=== PATIENT | male | born 1950 | race Two or more races ===

== ENCOUNTER 2025-02-23 15:09 | Emergency (ER) | payer MEDICARE, MEDICAID, SELFPAY ==
--- NOTE | 2025-02-23 | ECG_ITS ---
Test Reason : dyspnea Blood Pressure : */* mmHG Vent. Rate : 72 BPM Atrial Rate : 72 BPM P-R Int : 130 ms QRS Dur : 90 ms QT Int : 402 ms P-R-T Axes : 49 84 31 degrees QTcB Int : 440 ms Normal sinus rhythm Normal ECG When compared with ECG of 04-Oct-2003 10:30, No significant change was found Referred By: Generic ED Physician Electronically Signed By: REBA HUNTER MD
--- NOTE | ~2025-02-23 | XR_ITS ---
EXAMINATION: XR CHEST CLINICAL INFORMATION: chest pain COMPARISON: None available. TECHNIQUE: 2 views of the chest were obtained. FINDINGS: Bilateral multifocal patchy opacities with a reticular nodular pattern. No gross pleural effusion or pneumothorax. No hyperinflation. Low lung volume. Probable 2 mm calcified nodule right lower hemithorax. Lateral projection is limited due to overlapping of the upper extremities. Sternal wires. Cardiomediastinal silhouette size is normal. Multilevel thoracic spondylosis. XR/XR chest 2V IMPRESSION: Concerning acute on chronic airspace disease. Electronically signed by: Jun Gill MD 02/23/2025 04:00 PM EDT
--- NOTE | 2025-02-23 15:33 | ED.EXTPRO ---
HPI - Extremity Problem General Chief complaint: Dyspnea Stated complaint: both feet cold and swelling Time Seen by Provider: 02/23/25 16:09 Source: patient Mode of arrival: ambulatory Limitations: no limitations History of Present Illness ED Provider: HPI Narrative: Patient's history of COPD oxygen-dependent 2-3 L aortic valve replacement bioprosthetic hypertension diabetes CKD [place] furo[place]ide comes here for increased swelling of the legs for last few days with increased shortness a breath no chest pain no fever no chills does have cough with mucoid phlegm Related Data Previous Rx's ?Medication ?Instructions ?Recorded ezetimibe 10 mg tablet 10 mg PO DAILY #30 tabs 02/23/25 furosemide 20 mg tablet 20 mg PO DAILY #30 tabs 02/23/25 Allergies Allergy/AdvReac Type Severity Reaction Status Date / Time No Known Allergies Allergy Verified 02/23/25 15:36 Review of Systems Review of Systems: Yes all other systems are reviewed and are negative PMFSH Past Medical History Medical History 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 2 diabetes mellitus associated with morbid obesity Hyperlipidemia Osteoarthritis Essential hypertension Oxygen dependent COPD (chronic obstructive pulmonary disease) Surgical History H/O aortic valve replacement Social History Social History Advance Directives: No Advance Directives Information Provided: No Do you have a plan to hurt others: No Plan Physical Exam Vital Signs: Vital Signs: Last Vital Signs Temp 98.1 F 02/23/25 18:40 Pulse 74 02/23/25 18:40 Resp 18 02/23/25 18:40 BP 111/94 H 02/23/25 18:40 Pulse Ox 93 02/23/25 18:40 O2 Del Method Nasal Cannula 02/23/25 18:40 O2 Flow Rate 3 02/23/25 18:40 BMI result Body Mass Index 34.5 Appearance: Alert. Oriented X3. No acute distress. Obese Eyes: PERRLA, No Nystagmus ENT: Pharynx normal. Oral Mucosa moist Neck: Normal inspection. Neck supple. CVS: Normal heart rate and rhythm. Pulses normal. Respiratory: No respiratory distress. Equal air entry bilateral, no wheezing/rales/rhonchi decreased air entry at the bases occasional crackles Abdomen: Soft and nontender. Bowel sounds are present, no mass palpable, no CVA tenderness Skin: Skin warm and dry. Normal skin color. Normal skin turgor. Extremities: 3+ pitting lower extremity edema b/l No calf tenderness Neuro: Oriented X 3. No motor deficit. No sensory deficit. Course Course Course Narrative: 74-year-old Maltese-speaking male accompanied by son with medical history of SP CABG, T2DM, on 3 L of oxygen at home, presents to the emergency department today due to chronic left lower extremity pain and swelling with copious watery exudate with worsening swelling over the past 2 days. Also endorsing intermittent chest pain, takes nitroglycerin when having episodes of chest pain with good relief. States he took a dose of nitroglycerin today which did relieve his chest pain. Recently moved to the [facility] from [place] 1 month ago. PE: LLE with 3+ pitting edema, with hydrostatic bullae currently weeping in triage. DP/popliteal pulses 2+. RLE with 3+ pitting edema no weeping. 88% on 3L, lungs CTA. Plan: EKG, chest x-ray, labs Medical Decision Making Medical Decision Making [facility] Narrative: Patient with COPD aortic valve replaced on Coumadin workup showed stable labs with normal BNP level. Will increase the dose of furosemide to 20 mg b.i.d. and ry artery disease status post aortic valve replacement on supplemental oxygen comes here for bilateral leg edema patient also on amlodipine been taking furosemide 20 mg daily Differential Diagnosis Differential Diagnoses: The differential diagnosis associated with the presentation includes Admission/Observation Consideration of admission/observation: Escalation of care including admission/observation considered Lab Data [facility] Lab Attestation statement: I reviewed the patient's lab results. 02/23/25 16:14 02/23/25 17:09 Labs: Lab Results 02/23/25 02/23/25 Range/Units 16:14 17:09 WBC 9.6 (4.8-10.8) X10*3/uL RBC 5.04 (4.60-5.80) X10*6/uL Hgb 14.4 (14.0-18.0) g/dl Hct 45.1 (42.0-52.0) % MCV 89.5 (80.0-98.0) fL MCH 28.6 (27.0-33.0) pg MCHC 31.9 (31.0-36.0) g/dl RDW 14.8 (11.0-16.0) % Plt Count 169 (160-400) X10*3/uL MPV 9.4 (9.4-12.4) fL Immature Gran % (Auto) 0.6 H (0.0-0.4) % Neut % (Auto) 58.3 (45-73) % Lymph % (Auto) 22.7 (20-40) % [place] % (Auto) 13.0 H (2-11) % Eos % (Auto) 4.6 H (0-4) % Baso % (Auto) 0.8 (0-2) % Lymph # (Auto) 2.2 (1.2-4.9) X10*3/uL [place] # (Auto) 1.3 H (0.1-1.2) X10*3/uL Eos # (Auto) 0.4 (0.0-0.4) X10*3/uL Baso # (Auto) 0.1 (0.0-0.2) X10*3/uL Abs Immat Gran (auto) 0.06 H (0.00-0.03) X10*3/uL Absolute Neuts (auto) 5.6 (2.0-8.3) x10*3/uL Absolute Nucleated RBC 0.000 (0.0-0.012) X10*3/uL Nucleated RBC % (auto) 0.0 (0.0-0.2) /100WBC Sodium 141 (135-145) mmol/L Potassium 4.5 (3.3-5.1) mmol/L Chloride 105 (96-108) mmol/L Carbon Dioxide 27 (22-29) mmol/L Anion Gap 14 (12-20) BUN 30 H (9-16) mg/dL Creatinine 1.48 H (0.5-1.4) mg/dL Estim Creat Clear Calc 44.5 Estimated GFR 46 Random Glucose 161 H (60-115) mg/dL Calcium 9.8 (8.4-10.2) mg/dL Magnesium 1.9 (1.6-2.6) mg/dL Total Bilirubin 0.7 (0.0-1.0) mg/dL AST 25 (5-37) U/L ALT 16 (0-40) U/L Alkaline Phosphatase 65 (39-117) U/L Troponin I High Sens 8.3 (<3.5-35.0) ng/L B-Natriuretic Peptide 39 (<100) pg/mL Total Protein 7.6 (6.5-8.0) g/dL Albumin 4.3 (3.5-5.0) g/dL Independent Interpretation I performed an independent interpretation of an: EKG Interpretation: Normal sinus rhythm heart rate 72 beats per minute normal interval normal axis no acute ST-T no acute ischemia Discharge Plan Discharge Clinical Impression: Leg edema Patient Disposition: Home, Self-Care Instructions: Leg Edema (ED) Additional Instructions: Stop amlodipine as it baby causing swelling of the leg Increase the dose of furosemide 20 mg the morning and 20 mg in the afternoon at 14:00 for next 5 days then start taking once a day Follow up with your PCP Continue your oxygen and nebulizer treatment Prescriptions: New furosemide 20 mg tablet 20 mg PO DAILY Qty: 30 0RF ezetimibe 10 mg tablet 10 mg PO DAILY Qty: 30 0RF Referrals: Lena Bynum MD [Physician] - Jaskaran Szymanski MD [Physician] - Interventions: ED Discharge Assessment Last Done: 02/23/25 18:40 Discharge Date/Time: 02/23/25 18:57 Print Language: Maltese
[2025-02-23 15:34] VITALS: BP 123/51; PULSE 81; RESP 20; TEMP 36.8; O2SAT 88; BMI 34.5
[2025-02-23 16:19] LABS: MANUAL DIFF FLAG NO
[2025-02-23 16:20] LABS: Basophils Absolute Auto 0.1 X10*3/uL (0.0-0.2); Basophils Percent Auto 0.8 % (0-2); Eosinophils Absolute Auto 0.4 X10*3/uL (0.0-0.4); Eosinophils Percent Auto 4.6 % (0-4); Hematocrit 45.1 % (42.0-52.0); Hemoglobin 14.4 g/dl (14.0-18.0); Imm Gran Abs Auto 0.06 X10*3/uL (0.00-0.03); Imm Gran Pct Auto 0.6 % (0.0-0.4); Lymphocytes Absolute Auto 2.2 X10*3/uL (1.2-4.9); Lymphocytes Percent Auto 22.7 % (20-40); Mean Corpuscular HGB Conc 31.9 g/dl (31.0-36.0); Mean Corpuscular Hemoglobin 28.6 pg (27.0-33.0); Mean Corpuscular Volume 89.5 fL (80.0-98.0); Mean Platelet Volume 9.4 fL (9.4-12.4); Monocytes Absolute Auto 1.3 X10*3/uL (0.1-1.2); Neutrophils Absolute Auto 5.6 x10*3/uL (2.0-8.3); Neutrophils Percent Auto 58.3 % (45-73); Platelet Count 169 X10*3/uL (160-400); Red Blood Count 5.04 X10*6/uL (4.60-5.80); Red Cell Distribution Width 14.8 % (11.0-16.0); White Blood Count 9.6 X10*3/uL (4.8-10.8)
[2025-02-23 16:45] LABS: B Type Natriuretic Peptide 39 pg/mL (<100)
[2025-02-23 16:46] LABS: Troponin-I High Sensitivity 8.3 ng/L (<3.5-35.0)
[2025-02-23 17:36] LABS: Alanine Aminotransferase 16 U/L (0-40); Albumin Level 4.3 g/dL (3.5-5.0); Alkaline Phosphatase 65 U/L (39-117); Anion Gap 14 (12-20); Aspartate Amino Transferase 25 U/L (5-37); Bilirubin Total 0.7 mg/dL (0.0-1.0); Blood Urea Nitrogen 30 mg/dL (9-16); Calcium 9.8 mg/dL (8.4-10.2); Carbon Dioxide 27 mmol/L (22-29); Chloride 105 mmol/L (96-108); Creatinine Clr Calc Pharmacy 44.5; Estimated Glomerular Filt Rate 46; Glucose Random 161 mg/dL (60-115); Magnesium 1.9 mg/dL (1.6-2.6); Potassium 4.5 mmol/L (3.3-5.1); Sodium 141 mmol/L (135-145); Total Protein 7.6 g/dL (6.5-8.0)
[2025-02-23 18:29] VITALS: BP 110/74; PULSE 74; RESP 16
[2025-02-23 18:40] VITALS: BP 111/94; PULSE 74; RESP 18; TEMP 36.7; O2SAT 93
== END 2025-02-23 18:57 | disposition home or self-care (01) ==
PROVIDERS: Emergency Provider Internal Medicine
DX: R60.0 Localized edema (principal); R06.02 Shortness of breath; Z79.01 Long term (current) use of anticoagulants; Z79.899 Other long term (current) drug therapy
CPT/HCPCS: 36415; 71046; 80053; 83735; 83880; 84484; 85025; 93005; 99283; 99285

== ENCOUNTER → 2025-02-23 15:44 | Outpatient (BNV) | payer MEDICARE, MEDICAID, SELFPAY | PROVIDERS: Emergency Provider Internal Medicine; Visit Provider Radiology Diagnostic Radiology | DX: R07.9 Chest pain, unspecified (principal) | CPT/HCPCS: 71046 ==

== ENCOUNTER → 2025-02-23 16:22 | Outpatient (BNV) | payer MEDICARE, MEDICAID, SELFPAY | PROVIDERS: Emergency Provider Internal Medicine; Visit Provider Internal Medicine Cardiovascular Disease | DX: R06.00 Dyspnea, unspecified (principal) | CPT/HCPCS: 93010 ==

== ENCOUNTER 2025-03-17 08:26 | Outpatient (REF) | payer MEDICARE, MEDICAID, SELFPAY ==
--- NOTE | ~2025-03-17 | XR_ITS ---
EXAMINATION: XR SHOULDER, RIGHT CLINICAL INFORMATION: OA OF SHOULDER COMPARISON: None available. TECHNIQUE: AP external rotation, Grashey, scapular Y, and axillary views of the right shoulder. FINDINGS: Subchondral cyst, and sclerosis along the articular surfaces of the glenoid and humeral head. Deformity of the humeral head and greater tuberosity. Joint space narrowing, glenohumeral joint. Sclerosis along the articular surface and subchondral cyst formation with joint space narrowing at the acromioclavicular joint. No acute cortical disruption or malalignment. No lytic or blastic lesions. Sternal wires.. XR/XR shoulder RT min 2V IMPRESSION: Moderate to severe osteoarthrosis/osteoarthritis, right shoulder. Electronically signed by: Jun Gill MD 03/17/2025 09:31 AM EDT
[2025-03-17 08:55] LABS: MANUAL DIFF FLAG NO
[2025-03-17 10:01] LABS: Basophils Absolute Auto 0.1 X10*3/uL (0.0-0.2); Basophils Percent Auto 0.5 % (0-2); Eosinophils Absolute Auto 0.3 X10*3/uL (0.0-0.4); Hematocrit 45.9 % (42.0-52.0); Hemoglobin 15.1 g/dl (14.0-18.0); Imm Gran Abs Auto 0.07 X10*3/uL (0.00-0.03); Imm Gran Pct Auto 0.7 % (0.0-0.4); Lymphocytes Percent Auto 19.9 % (20-40); Mean Corpuscular HGB Conc 32.9 g/dl (31.0-36.0); Mean Corpuscular Hemoglobin 29.3 pg (27.0-33.0); Mean Corpuscular Volume 89.1 fL (80.0-98.0); Mean Platelet Volume 9.5 fL (9.4-12.4); Monocytes Absolute Auto 0.9 X10*3/uL (0.1-1.2); Monocytes Percent Auto 9.2 % (2-11); Neutrophils Absolute Auto 6.7 x10*3/uL (2.0-8.3); Neutrophils Percent Auto 66.7 % (45-73); Platelet Count 175 X10*3/uL (160-400); Red Blood Count 5.15 X10*6/uL (4.60-5.80); Red Cell Distribution Width 13.9 % (11.0-16.0); White Blood Count 10.1 X10*3/uL (4.8-10.8)
[2025-03-17 10:09] LABS: Estimated Average Glucose 186 mg/dL; Hemoglobin A1c % 8.1 % (<6.0)
[2025-03-17 10:28] LABS: Creatinine Urine 82.34 mg/dL; Microalbum/Creatinine Ratio Ur 163.9 ug/mg cr (<30)
[2025-03-17 10:48] LABS: Alanine Aminotransferase 16 U/L (0-40); Albumin Level 4.2 g/dL (3.5-5.0); Alkaline Phosphatase 57 U/L (39-117); Anion Gap 14 (12-20); Aspartate Amino Transferase 29 U/L (5-37); Bilirubin Total 1.1 mg/dL (0.0-1.0); Blood Urea Nitrogen 17 mg/dL (9-16); Calcium 9.4 mg/dL (8.4-10.2); Carbon Dioxide 25 mmol/L (22-29); Chloride 106 mmol/L (96-108); Cholesterol 122 mg/dL (<200); Estimated Glomerular Filt Rate > 60; Glucose Random 114 mg/dL (60-115); HDL Cholesterol 38 mg/dL (>40); LDL Cholesterol Calculated 56 mg/dL (<100); Sodium 141 mmol/L (135-145); Total Protein 7.3 g/dL (6.5-8.0); Triglycerides 143 mg/dL (<150)
[2025-03-17 10:51] LABS: Thyroid Stimulating Hormone 0.58 uIU/mL (0.32-4.0)
== END 2025-03-17 08:27 | disposition home or self-care (01) ==
LOC: HO.XRAY 08:26
PROVIDERS: PCP Internal Medicine; Visit Provider Internal Medicine
DX: E11.69 Type 2 diabetes mellitus with other specified complication (principal); E78.00 Pure hypercholesterolemia, unspecified; I12.9 Hypertensive chronic kidney disease with stage 1 through stage 4 chronic kidney disease, or unspecified chronic kidney disease; I34.2 Nonrheumatic mitral (valve) stenosis; I70.8 Atherosclerosis of other arteries; I73.9 Peripheral vascular disease, unspecified; J44.9 Chronic obstructive pulmonary disease, unspecified; M19.011 Primary osteoarthritis, right shoulder; Z95.4 Presence of other heart-valve replacement
CPT/HCPCS: 36415; 73030; 80053; 80061; 82043; 82570; 83036; 84443; 85025

== ENCOUNTER → 2025-03-17 09:10 | Outpatient (BNV) | payer MEDICARE, MEDICAID, SELFPAY | PROVIDERS: PCP Internal Medicine; Visit Provider Radiology Diagnostic Radiology | DX: M19.011 Primary osteoarthritis, right shoulder (principal) | CPT/HCPCS: 73030 ==

== ENCOUNTER 2025-03-28 14:47 | Outpatient (AMB) | payer MEDICARE, MEDICAID, SELFPAY ==
--- NOTE | 2025-03-28 14:48 | A.OFFVIS_ITS ---
Vital Signs 03/28/25 14:49 Height 5 ft 4 in Weight 194 lb BMI 33.3 BP 104/52 L Blood Pressure Location Lt brachial Position Sitting Pulse 62 Pulse Source Pulse Oximeter Pulse Oximetry (%) 95 Oxygen Delivery Method Nasal Cannula Oxygen Flow Rate 3 Intake Visit Reasons: Hypoxia/COPD Allergies No Known Allergies Allergy (Verified 03/28/25 14:54) HPI Comments Details: The patient is here for pulmonary evaluation. The patient is a 74-year-old gentleman with chronic respiratory failure, COPD, heart failure who apparently recently moved to the [facility]. The patient was in his usual state health until back in January when he started developing worsening shortness of breath in addition to lower extremity edema. He was taken to the [facility] ED where he was found to be volume overloaded and was placed on diuretics. He diuresed well and currently feeling better. He is still oxygen dependent. He did come from [place] on a portable oxygen concentrator and he is using a 3 L pulse. Therefore during the office visit we did take him off the oxygen and he actually saturating 93% on room air while sitting. But quickly when he went up and walked he dropped to 88% and was placed on 2 L pulse and then had to be increased to 3 L pulse to maintain a pulse ox of 94% with activity. Therefore will go ahead and request a POC for him to be use outside of the home for better portability a also needs a concentrator for the home for oxygen. The patient will also on the knee pulmonary function studies. He did have an x-ray already done at the ER which I personally reviewed demonstrating some reticular nodular opacities which could have been related to underlying interstitial lung disease and/or congestive heart failure. The patient also has a history of COPD and therefore will go ahead and start him on nebulizer machine in order for him to receive his nebulizer treatments twice a day. The patient is also having issues with daytime drowsiness. He has significant snoring at nighttime. He is also oxygen dependent at nighttime so therefore will request a in-lab sleep study to assess the likelihood of sleep apnea. If he does have sleep apnea he may be treated with CPAP or other PAP modalities. [facility] Medical History (Updated 03/28/25 @ 21:42 by Lucien Thapa MD) CHF (congestive heart failure) GER (obstructive sleep apnea) Chronic hypoxemic respiratory failure 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 2 diabetes mellitus associated with morbid obesity Hyperlipidemia Osteoarthritis Essential hypertension Oxygen dependent COPD (chronic obstructive pulmonary disease) Surgical History H/O aortic valve replacement Review of Systems Const Denies fever(s) Eyes Reports no additional complaints ENT Reports nasal congestion Card Denies chest pain, Reports leg edema and Reports dyspnea on exertion Resp Reports cough and Reports dyspnea on exertion GI Reports no additional complaints Reports no additional complaints Musc Reports abnormal gait Skin/Breast Denies rash Neuro Reports abnormal gait Antony/Lymph Reports no additional complaints Aller/Immun Reports no additional complaints Physical Exam Vital Signs: Last Vital Signs Pulse 62 03/28/25 14:49 BP 104/52 L 03/28/25 14:49 Pulse Ox 95 03/28/25 14:49 Oxygen Delivery Method Nasal Cannula 03/28/25 14:49 Oxygen Flow Rate 3 03/28/25 14:49 BMI result Body Mass Index 33.3 Const General: comfortable HEENT Head: Yes normocephalic Neck Neck: Yes supple Chest Chest palpation & inspection: normal inspection of the chest Resp Effort & Inspection: normal respiratory effort Auscultation: diminished lung sounds Cardio Heart sounds: S1 normal heart sound present and S2 normal heart sound present GI Palpation (GI): Soft to palpation Skin General skin exam: no rashes or lesions noted Extrem General: No clubbing and No cyanosis Office Procedures 6 Minute Walk Time:: 21:46 SPO2 % at rest: 93 Pulse at rest: 78 SPO2 % during excercise: 88 Pulse during excercise: 89 Distance in yards walked: 75 Daniela Score: 6 Supplemental Oxygen: quickly desaturated to 88% with activity on RA, placed on 2L/pulse, then 3L/pulse to keep pulse ox 94% with activity. [address]2288 - 6 Minute Walk Assessment & Plan Assessment & Plan (1) CHF (congestive heart failure): Code(s): I50.9 - Heart failure, unspecified Category: Medical Qualifiers: Heart failure type: unspecified Heart failure chronicity: chronic Qualified Code(s): I50.9 - Heart failure, unspecified (2) Chronic hypoxemic respiratory failure: Code(s): J96.11 - Chronic respiratory failure with hypoxia Category: Medical (3) GER (obstructive sleep apnea): Code(s): G47.33 - Obstructive sleep apnea (adult) (pediatric) Category: Medical (4) COPD (chronic obstructive pulmonary disease): Code(s): J44.9 - Chronic obstructive pulmonary disease, unspecified Category: Medical Qualifiers: COPD type: chronic bronchitis Chronic bronchitis type: simple Qualified Code(s): J41.0 - Simple chronic bronchitis Plan Needs anebulizer Duoneb BID Needs oxygen supplementation: 3L/pulse with activity with POC for better portability and 2l/min while sleeping in lab PSG PFTs Diuresis as tolerated PFTs F/U 2-3 months Orders: Orders PFT pulmonary function test Today G47.33 - Obstructive sleep apnea (adult) (pediatric), I50.9 - Heart failure, unspecified, J96.11 - Chronic respiratory failure with hypoxia RT PSG in-lab sleep titration Today G47.33 - Obstructive sleep apnea (adult) (pediatric), I50.9 - Heart failure, unspecified, J96.11 - Chronic respiratory failure with hypoxia Medications: New ipratropium-albuterol 0.5 mg-3 mg(2.5 mg base)/3 mL 3 mL inhalation BID 180 mL 11RF 30 days J44.9 - Chronic obstructive pulmonary disease, unspecified Coding Level of Care Code New Pt Level 4 (53922) Diagnoses Chronic congestive heart failure, unspecified heart failure type I50.9 Heart failure type: unspecified Heart failure chronicity: chronic Chronic hypoxemic respiratory failure J96.11 GER (obstructive sleep apnea) G47.33 Simple chronic bronchitis J41.0 COPD type: chronic bronchitis Chronic bronchitis type: simple CPT Codes Coding ([id number]) Time Spent (min) 40
[2025-03-28 14:49] VITALS: BP 104/52; PULSE 62; O2SAT 95; BMI 33.3
[2025-03-28 21:44] VITALS: PULSE 78; O2SAT 93
== END 2025-03-28 15:24 | disposition home or self-care (01) ==
LOC: HO.HPS 14:48
PROVIDERS: PCP Internal Medicine; Referring Provider Internal Medicine; Visit Provider Hospitalist
DX: I50.9 Heart failure, unspecified (principal); J96.11 Chronic respiratory failure with hypoxia; G47.33 Obstructive sleep apnea (adult) (pediatric); J41.0 Simple chronic bronchitis
CPT/HCPCS: 94618; 99204

== ENCOUNTER → 2025-03-28 14:47 | Outpatient (BNVA) | payer MEDICARE, MEDICAID, SELFPAY | PROVIDERS: PCP Internal Medicine; Referring Provider Internal Medicine; Visit Provider Hospitalist | DX: J96.11 Chronic respiratory failure with hypoxia (principal); I50.9 Heart failure, unspecified; G47.33 Obstructive sleep apnea (adult) (pediatric); J41.0 Simple chronic bronchitis; Z99.81 Dependence on supplemental oxygen | CPT/HCPCS: 94618; 99202 ==

== ENCOUNTER 2025-04-18 11:29 | Outpatient (AMB) | payer MEDICARE, MEDICAID, SELFPAY ==
--- NOTE | 2025-04-18 11:30 | A.OFFVIS_ITS ---
Intake Visit Reasons: [employer] VV Intake Note: New patient presents for VV. Patient has bilateral discoloration on both legs. Left leg pain is worse. He gets cramping and numbness. Accompanied by: Son Allergies No Known Allergies Allergy (Verified 04/18/25 11:34) HPI HPI [employer] VV: Details: Very pleasant 74-year-old gentleman presents for evaluation of his lower ext remities. He originally had some medical care performed in [place]. He does report some peripheral vascular disease and stenting of his left lower extremity November of 2023. In addition there is question of an aortofemoral bypass. He has significantly swollen lower extremities. He has discolored areas on the pretibial surface which she reports had previous serous drainage. Of note he is a diabetic does have COPD and is oxygen dependent. It is the shortness of breath that limits his ambulation distance. He is being maintained on statin and Plavix. He now presents to us for vascular evaluation. [facility] Medical History CHF (congestive heart failure) GER (obstructive sleep apnea) Chronic hypoxemic respiratory failure 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 2 diabetes mellitus associated with morbid obesity Hyperlipidemia Osteoarthritis Essential hypertension Oxygen dependent COPD (chronic obstructive pulmonary disease) Surgical History H/O aortic valve replacement Review of Systems Const All systems reviewed & are unremarkable except as noted in HPI and below Reports no additional complaints ENT Reports Normal hearing present Card Denies chest pain, Denies chest pain at rest, Denies chest pain with activity and Denies pedal edema Resp Denies cough GI Denies abdominal pain Musc Details: pain over varicosities, aching of lower extremities, swelling, cramping, heaviness and tiredness, itching Denies abnormal gait, Denies muscle cramps and Denies radiating pain into limb Skin/Breast Denies skin ulcer and Denies wounds Neuro Reports Normal hearing present and Denies abnormal gait Psych Reports no additional complaints Physical Exam Const General: cooperative, healthy appearing and comfortable Orientation/consciousness: oriented to person, oriented to place and oriented to time HEENT Head: Yes normal to inspection Neck Neck: Yes normal visual inspection Carotids: no bruits Chest Chest palpation & inspection: normal inspection of the chest Resp Effort & Inspection: normal respiratory effort and able to speak in complete sentences Auscultation: clear to auscultation bilaterally, no crackles, no rales, no rhonchi and no wheezes Cardio Other: Bilateral DP signals only Rate: regular rate Rhythm: regular rhythm Heart sounds: S1 normal heart sound present and S2 normal heart sound present Bruits: no carotid bruits GI Inspection: Yes normal to inspection Skin Other: +2 edema, large rope-like varicosities greater than 4 mm CEAP Classification C4 - skin color changes Ep - Etiology Primary As - superficial veins P - reflux General skin exam: dry skin Wounds: no wounds Hair: normal Neuro General: oriented to person, oriented to place and oriented to time Cranial nerves: Yes CN's II-XII intact bilaterally and Yes Normal hearing present Cognition (Neuro): normal cognition Motor exam (neuro): 5/5 motor strength present throughout Extrem Other: venous exam: +2 edema with pretibial skin discoloration General: No clubbing, No cyanosis and Yes edema Right lower extremity: full ROM, normal capillary refill and edema Left lower extremity: full ROM, normal capillary refill and edema Psych Appearance: grossly normal Mental Status: mental status grossly normal Speech and movement: Normal speech and movement present Assessment & Plan Assessment & Plan (1) PAD (peripheral artery disease): Comment: 12/19 - left leg stenting in [place] Question of aortofemoral bypass Code(s): I73.9 - Peripheral vascular disease, unspecified Category: Medical Plan: In short patient may have an element of KARL Nur Very poor historian and unable to get a clear history of what previously was done in regards to his arterial disease. I have taken the liberty of ordering noninvasive arterial testing and he will follow up with us after testing. Thank you for allowing us to participate in his care. If there are any questions or concerns please do not hesitate to contact us. (2) Varicose veins of right lower extremity with inflammation: Code(s): I83.11 - Varicose veins of right lower extremity with inflammation Category: Medical Plan: Significant swelling bilateral lower extremities. We will get venous reflux testing as well. We will try to manage his arterial disease 1st and then delve into his venous disease. Thank you for allowing us to assist in his care. Orders: Orders US venous duplex LE BI 1 Week I83.11 - Varicose veins of right lower extremity with inflammation US arterial duplex LE BI 1 Week I73.9 - Peripheral vascular disease, unspecified Coding Level of Care Code New Pt Level 4 (58989) Complex EM visit Add On G2211 Diagnoses PAD (peripheral artery disease) I73.9 Varicose veins of right lower extremity with inflammation I83.11
== END 2025-04-18 11:47 | disposition home or self-care (01) ==
LOC: HO.HVS 11:29
PROVIDERS: PCP Internal Medicine; Visit Provider Surgery Vascular Surgery
DX: I73.9 Peripheral vascular disease, unspecified (principal); I83.11 Varicose veins of right lower extremity with inflammation
CPT/HCPCS: 99204; G2211

== ENCOUNTER → 2025-04-18 11:29 | Outpatient (BNVA) | payer MEDICARE, MEDICAID, SELFPAY | PROVIDERS: PCP Internal Medicine; Visit Provider Surgery Vascular Surgery | DX: I83.11 Varicose veins of right lower extremity with inflammation (principal); I73.9 Peripheral vascular disease, unspecified | CPT/HCPCS: 99202 ==

== ENCOUNTER 2025-05-16 09:11 | Outpatient (REF) | payer MEDICARE, MEDICAID, SELFPAY ==
[2025-05-16 10:25] LABS: Hemoglobin A1C 268.9325 umol/L; Total Hemoglobin (HGBA1C) 3899.8301 umol/L
[2025-05-16 10:48] LABS: Alanine Aminotransferase 17 U/L (0-40); Albumin Level 4.3 g/dL (3.5-5.0); Alkaline Phosphatase 61 U/L (39-117); Anion Gap 13 (12-20); Aspartate Amino Transferase 27 U/L (5-37); Blood Urea Nitrogen 19 mg/dL (9-16); Calcium 9.5 mg/dL (8.4-10.2); Carbon Dioxide 29 mmol/L (22-29); Chloride 102 mmol/L (96-108); Estimated Glomerular Filt Rate > 60; Potassium 4.7 mmol/L (3.3-5.1); Sodium 139 mmol/L (135-145); Total Protein 7.4 g/dL (6.5-8.0)
== END 2025-05-16 09:12 | disposition home or self-care (01) ==
LOC: HO.LAB 09:11
PROVIDERS: PCP Internal Medicine; Visit Provider Internal Medicine
DX: E11.69 Type 2 diabetes mellitus with other specified complication (principal); E78.00 Pure hypercholesterolemia, unspecified; M19.011 Primary osteoarthritis, right shoulder; N40.0 Benign prostatic hyperplasia without lower urinary tract symptoms; R09.02 Hypoxemia; R80.8 Other proteinuria; Z12.5 Encounter for screening for malignant neoplasm of prostate
CPT/HCPCS: 36415; 80053; 83036; 84153

== ENCOUNTER 2025-05-22 10:16 | Outpatient (REF) | payer MEDICARE, MEDICAID, SELFPAY ==
--- NOTE | ~2025-05-22 | US_ITS ---
EXAMINATION: US LOWER EXTREMITY VENOUS (REFLUX EXAM), BILATERAL CLINICAL INFORMATION: Varices. COMPARISON: None. TECHNIQUE: Color flow triplex imaging and compression Doppler was performed to evaluate both the deep and the superficial systems bilaterally. To evaluate the superficial system, the examination was performed in the upright position. Color-flow Doppler ultrasound and compression ultrasound were utilized. In addition, maneuvers were utilized to demonstrate reflux. FINDINGS: 1. DEEP VENOUS ULTRASOUND OF THE RIGHT LOWER EXTREMITY: Common Femoral Vein: Compressible, normal respiratory variation and augmented flow. Femoral Vein: Compressible, normal color flow and augmentation. Popliteal Vein: Compressible, normal augmentation. Deep Reflux: There is no evidence of reflux in the deep system in either the common femoral vein, superficial femoral or the popliteal vein. There is no evidence of a Dean's cyst. 2. SUPERFICIAL ULTRASOUND WITH DOPPLER OF RIGHT LOWER EXTREMITY: GREAT SAPHENOUS VEIN: Saphenofemoral Junction: 0.5 cm; Reflux: 0 ms Proximal Thigh: 0.4 cm; Reflux: 0 ms Mid Thigh: 0.3 cm; Reflux: 0 ms Distal Thigh: 0.3 cm; Reflux: 0 ms At Knee: 0.3 cm; Reflux: 0 ms Proximal Calf: 0.2 cm; Reflux: 0 ms Mid Calf: 0.3 cm; Reflux: 0 ms Distal Calf: 0.3 cm; Reflux: 0 ms DUPLICATED MEDIAL GREAT SAPHENOUS VEIN: Diameter: None imaged Reflux: NA DUPLICATED LATERAL GREAT SAPHENOUS VEIN: Diameter: None imaged Reflux: NA SMALL SAPHENOUS VEIN: Saphenopopliteal Junction: [0.2 cm; Reflux: 0 ms Proximal: 0.2 cm; Reflux: 0 ms Distal: 0.3 cm; Reflux: 0 ms VEIN OF GIACOMINI: Size: 0.3 cm. Reflux: NA PERFORATORS: Location: Small saphenous vein mid segment. Proximal and mid calf. Size: 0.2 cm. Reflux: NA VARICOSITIES: Location: None imaged. Size: NA Reflux: NA 3. DEEP VENOUS ULTRASOUND OF THE LEFT LOWER EXTREMITY: Common Femoral Vein: Compressible, normal respiratory variation and augmented flow. Femoral Vein: Compressible, normal color flow and augmentation. Popliteal Vein: Compressible, normal augmentation. Deep Reflux: There is no evidence of reflux in the deep system in either the common femoral vein, superficial femoral or the popliteal vein. There is no evidence of a Dean's cyst. 4. SUPERFICIAL ULTRASOUND WITH DOPPLER OF LEFT LOWER EXTREMITY: GREAT SAPHENOUS VEIN: Saphenofemoral Junction: 0.7 cm; Reflux: 0 ms Proximal Thigh: 0.4 cm; Reflux: 0 ms Mid Thigh: 0.3 cm; Reflux: 0 ms Distal Thigh: 0.3 cm; Reflux: 0 ms At Knee: 0.3 cm; Reflux: 0 ms Proximal Calf: 0.2 cm; Reflux: 0 ms Mid Calf: 0.2 cm; Reflux: 0 ms Distal Calf: 0.2 cm; Reflux: 0 ms DUPLICATED MEDIAL GREAT SAPHENOUS VEIN: Diameter: None imaged Reflux: NA DUPLICATED LATERAL GREAT SAPHENOUS VEIN: Diameter: 0.2 cm. Reflux: NA SMALL SAPHENOUS VEIN: Saphenopopliteal Junction: 0.2 cm; Reflux: 0 ms Proximal: 0.3 cm; Reflux: 0 ms Distal: 0.1 cm; Reflux: 0 ms VEIN OF GIACOMINI: Size: NA Reflux: NA PERFORATORS: Location: Small saphenous vein mid segment. Mid calf and heel. Size: 0.1-0.2 cm. Reflux: 848 ms at the heel. VARICOSITIES: Location: None Imaged Size: NA Reflux: NA US/US venous duplex LE BI IMPRESSION: Right: No venous insufficiency. Perforators without reflux.. Left: Perforators at the heel with reflux. Electronically signed by: Jun Gill MD 05/22/2025 11:30 AM EDT
== END 2025-05-22 10:17 | disposition home or self-care (01) ==
LOC: HO.US 10:16
PROVIDERS: PCP Internal Medicine; Visit Provider Surgery Vascular Surgery
DX: I83.11 Varicose veins of right lower extremity with inflammation (principal)
CPT/HCPCS: 93970

== ENCOUNTER → 2025-05-22 10:24 | Outpatient (BNV) | payer MEDICARE, MEDICAID, SELFPAY | PROVIDERS: PCP Internal Medicine; Visit Provider Radiology Diagnostic Radiology | DX: I83.893 Varicose veins of bilateral lower extremities with other complications (principal) | CPT/HCPCS: 93970 ==

== ENCOUNTER 2025-05-31 07:52 | Outpatient (AMB) | payer MEDICARE, MEDICAID, SELFPAY ==
--- NOTE | 2025-05-31 08:01 | A.OFFVIS_ITS ---
Vital Signs 05/31/25 08:09 Height 5 ft 4 in Weight 190 lb BMI 32.6 Intake Visit Reasons: DIRECTOR DIGITAL STRATEGY-Rt shoulder OA Intake Note: Cholo is a 74 year old male who presents with complaints of progressively worsening right shoulder pain and weakness. The patient states that he injured his shoulder 6-7 years ago while lifting a heavy object. He has had cortisone injections in the past. He states that the last injection gave him no relief. He has failed the last 6 weeks of conservative treatment which has included Tylenol, anti-inflammatory medicines, a home exercise program and physical therapy exercises. He reports weakness when lifting his right hand above shoulder height. Rail Project Engineer Required: Yes Rail Project Engineer Services: Rail Project Engineer Present Rail Project Engineer Name: Dino Mcgraw [id number] Allergies No Known Allergies Allergy (Verified 05/31/25 08:10) Medication List - Last Reconciled 05/31/25 by Rafa Dawson MD atorvastatin 20 mg PO DAILY clopidogrel 75 mg PO DAILY ezetimibe 10 mg PO DAILY furosemide 20 mg PO DAILY insulin lispro (Humalog U-100 Insulin) subcut insulin syringe-needle U-100 As directed ipratropium-albuterol 0.5 mg-3 mg(2.5 mg base)/3 mL 3 mL inhalation BID 30 days linagliptin-metformin 2.5-500 mg (Jentadueto) tabs PO metoprolol tartrate 50 mg PO BID nitroglycerin mg sublingual spironolactone 25 mg PO DAILY [facility] Medical History CHF (congestive heart failure) GER (obstructive sleep apnea) Chronic hypoxemic respiratory failure 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 2 diabetes mellitus associated with morbid obesity Hyperlipidemia Osteoarthritis Essential hypertension Oxygen dependent COPD (chronic obstructive pulmonary disease) Surgical History H/O aortic valve replacement Physical Exam Const Other: Well-nourished well-developed very friendly male awake alert and oriented x3 in no acute distress Extrem Other: Right shoulder examination shows decreased range of motion when compared to his left shoulder, 4/5 strength with supraspinatus testing, positive impingement signs, no instability Results Reviewed Results Reviewed: X-rays of the patient's right shoulder show severe glenohumeral joint narrowing, subchondral sclerosis, osteophyte formation, no acute bony abnormalities Assessment & Plan Assessment & Plan (1) Rotator cuff insufficiency of right shoulder: Code(s): M25.311 - Other instability, right shoulder Category: Medical Plan Mr. Chon Guardado presents with right shoulder pain and weakness due to glenohumeral joint arthritis as well as possible full-thickness rotator cuff tearing. Thus, I will send the patient for an MRI of his right shoulder for further evaluation. I will see him back once the MRI is completed to discuss the findings and treatment options. Feel free to call me at any time should questions regarding his orthopedic management arise. I spent 20 minutes in reviewing the patient's records and imaging studies, seeing the patient and documenting in the medical record. Orders: Orders MR shoulder RT wo con 06/01/25 M25.311 - Other instability, right shoulder Coding Level of Care Code New Pt Level 3 (09297) Complex EM visit Add On G2211 Diagnoses Rotator cuff insufficiency of right shoulder M25.311
[2025-05-31 08:09] VITALS: BMI 32.6
== END 2025-05-31 08:17 | disposition home or self-care (01) ==
LOC: HO.HOS 07:54
PROVIDERS: PCP Internal Medicine; Visit Provider Orthopaedic Surgery
DX: M25.311 Other instability, right shoulder (principal)
CPT/HCPCS: 99203; G2211

== ENCOUNTER → 2025-05-31 20:30 | Outpatient (REF) | payer MEDICARE, MEDICAID, SELFPAY | LOC: HO.SL 20:30 | PROVIDERS: PCP Internal Medicine; Visit Provider Hospitalist | DX: G47.33 Obstructive sleep apnea (adult) (pediatric) (principal); J96.11 Chronic respiratory failure with hypoxia | CPT/HCPCS: 95810 ==

== ENCOUNTER → 2025-05-31 20:46 | Outpatient (BNV) | payer MEDICARE, MEDICAID, SELFPAY | PROVIDERS: PCP Internal Medicine; Visit Provider Internal Medicine | DX: G47.33 Obstructive sleep apnea (adult) (pediatric) (principal); R06.83 Snoring | CPT/HCPCS: 95810 ==

== ENCOUNTER 2025-06-06 07:55 | Outpatient (REF) | payer MEDICARE, MEDICAID, SELFPAY | END 2025-06-06 07:56 | disposition home or self-care (01) | LOC: HO.MRI 07:55 | PROVIDERS: PCP Internal Medicine; Visit Provider Orthopaedic Surgery | DX: Z13.89 Encounter for screening for other disorder (principal) ==

== ENCOUNTER 2025-06-12 10:46 | Outpatient (REF) | payer MEDICARE, MEDICAID, SELFPAY ==
--- NOTE | ~2025-06-12 | US_ITS ---
EXAMINATION: US RETROPERITONEAL LIMITED (AORTA) CLINICAL INFORMATION: Aorta screening.. COMPARISON: None available. TECHNIQUE: Dietrich-scale, color Doppler and spectral Doppler evaluation of the abdominal aorta. FINDINGS: The abdominal aorta is patent with peak systolic velocities 36 cm/s, 82 cm/s and 84 cm/s in the proximal, mid and distal segments respectively. The measurements of the aorta in maximum AP and transverse dimensions respectively are as follows: Proximal: 2.4 cm. Mid: 1.6 cm. Distal: 1.7 cm. Iliac arteries are patent with a peak systolic velocities as follows: Right: Common iliac artery: 77 cm/s. External iliac artery: 163 cm/s. Left: Common iliac artery: 150 cm/s. External iliac artery: 166 cm/s. US/US abdominal aortic aneurysm IMPRESSION: No aneurysm.. Electronically signed by: Jun Gill MD 06/12/2025 02:35 PM EDT
--- NOTE | ~2025-06-12 | US_ITS ---
EXAMINATION: Noninvasive assessment of the bilateral lower extremities with ARTERIAL DUPLEX, ANKLE BRACHIAL INDICES (ABIs), and PULSE VOLUME RECORDINGS (PVRs). CLINICAL INFORMATION: Peripheral vascular disease, unspecified. TECHNIQUE: Duplex Doppler techniques with waveform analysis and measurement of velocities in the bilateral common femoral, profunda femoris, superficial femoral, popliteal and tibial arteries were performed. Additionally, ankle pulse volume recordings, ankle pressure measurements and ankle brachial indices were obtained of the lower extremity arterial system bilaterally. The study was performed only at rest. COMPARISON: None FINDINGS: DIRECT DUPLEX DOPPLER FINDINGS: RIGHT LEG: Common femoral artery: 160 cm/s, phasicity: Biphasic. Profunda femoris artery: 90 cm/s, phasicity: Biphasic. . Superficial femoral artery (proximal): 186 cm/s, phasicity: Biphasic. Superficial femoral artery (mid): 215 cm/s, phasicity: Biphasic. Superficial femoral artery (distal): 142 cm/s, phasicity: Biphasic. Popliteal artery: 64 cm/s, phasicity: Biphasic. Posterior tibial artery: 56 cm/s, phasicity: Biphasic. Peroneal artery: No flow on color Doppler interrogation. Anterior tibial artery: 75 cm/s, phasicity: Biphasic. Dorsalis pedis artery: 46 cm/s, phasicity:Biphasic. LEFT LEG: Common femoral artery: 175 cm/s, phasicity: Biphasic. Profunda femoris artery: 93 cm/s, phasicity: Biphasic. Superficial femoral artery (proximal): 140 cm/s, phasicity: Biphasic. Superficial femoral artery (mid): 168 cm/s, phasicity: Biphasic. There is a stent. Superficial femoral artery (distal): 125 cm/s, phasicity: Biphasic. Popliteal artery: 122 cm/s, phasicity: Biphasic. Posterior tibial artery: 67 cm/s, phasicity: Monophasic. Peroneal artery: 65 cm/s, phasicity: Monophasic. Anterior tibial artery: Not documented . Dorsalis pedis artery: Not documented. There is a stent in the femoral artery mid segment with peak systolic velocities as follow: [place] artery proximal to stent: 86 cm/s. Biphasic. Proximal stent: 91 cm/s and biphasic waveform. Mid stent: 114 cm/s and biphasic waveform. Distal stent: 152 cm/s and biphasic waveform. Distal stent to the [place] artery: 168 cm/s and biphasic waveform. BRACHIAL PRESSURES: Right: 155 Left: 152 ANKLE PRESSURES: Right: PT 190, DP 203 Left: PT 201, DP 204 ANKLE-BRACHIAL INDEX: Right: 1.31 Left: 1.32 ANKLE PVR WAVEFORMS: Right: Abnormal Left: Abnormal US/US arterial duplex LE BI IMPRESSION: Right leg: Moderate inflow disease throughout the interrogated arteries. Slow flow versus occluded right peroneal artery. Left leg: Severe inflow disease in the posterior tibialis artery. Mild inflow disease throughout the interrogated arteries. Normal patent stent with biphasic waveforms. FILIPE Reference: - >1.4 = calcified vessels - 0.9 - 1.4 = normal - no significant arterial disease - 0.7 - 0.89 = mild peripheral arterial disease - 0.51 - 0.69 = moderate peripheral arterial disease - 0.50 = severe peripheral arterial disease - < .30 = critical arterial disease Electronically signed by: Jun Gill MD 06/12/2025 02:00 PM EDT
== END 2025-06-12 10:47 | disposition home or self-care (01) ==
LOC: HO.US 10:46
PROVIDERS: PCP Internal Medicine; Visit Provider Surgery Vascular Surgery
DX: I73.9 Peripheral vascular disease, unspecified (principal)
CPT/HCPCS: 76706; 93925

== ENCOUNTER → 2025-06-12 10:49 | Outpatient (BNV) | payer MEDICARE, MEDICAID, SELFPAY | PROVIDERS: PCP Internal Medicine; Visit Provider Radiology Diagnostic Radiology | DX: I73.9 Peripheral vascular disease, unspecified (principal); Z95.1 Presence of aortocoronary bypass graft | CPT/HCPCS: 76706; 93925 ==

== ENCOUNTER 2025-06-21 10:58 | Outpatient (REF) | payer MEDICARE, MEDICAID, SELFPAY ==
--- NOTE | ~2025-06-21 | XR_ITS ---
CLINICAL HISTORY: M79.641 - Pain in right hand Three views of the right hand. COMPARISON: None provided. FINDINGS: Radiopaque foreign body measuring 1 mm present within the subcutaneous soft tissues along the base of the 1st metacarpal. Atherosclerotic vascular calcifications. Distal radius and ulna appear intact. Carpals and metacarpals appear intact. Degenerative changes of the metacarpophalangeal joints most pronounced of the 1st and 2nd digits. Phalanges appear intact. Interphalangeal joint degenerative changes. IMPRESSION: 1. Radiopaque foreign body measuring 1 mm within the subcutaneous tissues along the base of the 1st metacarpal. This document has been electronically signed by: Weston Song MD on 06/21/2025 14:50:15
== END 2025-06-21 10:59 | disposition home or self-care (01) ==
LOC: HO.HOSX 10:58
PROVIDERS: PCP Internal Medicine; Visit Provider Orthopaedic Surgery
DX: S60.551A Superficial foreign body of right hand, initial encounter (principal); I50.9 Heart failure, unspecified; I73.9 Peripheral vascular disease, unspecified; E11.9 Type 2 diabetes mellitus without complications; J41.0 Simple chronic bronchitis; W45.8XXA Other foreign body or object entering through skin, initial encounter; Y93.89 Activity, other specified
CPT/HCPCS: 73130; 99202

== ENCOUNTER 2025-06-21 10:58 | Outpatient (AMB) | payer MEDICARE, MEDICAID, SELFPAY ==
[2025-06-21 11:09] VITALS: BMI 32.6
--- NOTE | 2025-06-21 11:09 | MHC.OFFVIS ---
Vital Signs 06/21/25 11:09 Height 5 ft 4 in Weight 190 lb BMI 32.6 Intake Visit Reasons: New Prob: Rt hand foreign object, discuss sx Intake Note: Cholo 74 yr old right hand dominant male, presents today with his son Lucien, for a new problem visit for his right hand. States he has a piece of metal in his hand. 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 Stated this cause him no pain or discomfort. States he has numbness and tingling in hands and its due to his diabetes and neuropathy. States he would like to have this metal piece removed so he is able to have his shoulder MRI done. Accompanied by: son Lucien Allergies No Known Allergies Allergy (Verified 06/21/25 11:27) HPI HPI New Prob: Rt hand foreign object, discuss sx: Details: Cholo is a 74 year old right hand dominant Diabetic Salvadorean speaking man who presents for a right hand foreign body. Reading workload messages, he was referred today by Dr. Dawson as the patient is unable to undergo a shoulder MRI due to a metallic ferromagnetic foreign body in his right hand. 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 He denies any pain and says he is only here to have this removed so he can undergo his shoulder MRI. Evidently when the diesel maintenance technician placed a magnet over the area, the metal piece lifted up, tenting the skin. He is currently rescheduled for a shoulder CT scan on 08/16/25. He reports numbness & tingling in his hands but says this is from his Diabetes & neuropathy. 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 Review of Systems Const All systems reviewed & are unremarkable except as noted in HPI and below Physical Exam Vital Signs: BMI result Body Mass Index 32.6 Const General: cooperative, healthy appearing and no acute distress Orientation/consciousness: patient oriented x3 HEENT Head: Yes normocephalic and Yes atraumatic Eyes EOM: EOMs intact bilaterally Resp Effort & Inspection: normal respiratory effort and able to speak in complete sentences Cardio Jugular venous distension: no JVD Skin General skin exam: turgor normal Rashes: no rashes Neuro General: patient oriented x3 Extrem Other: Evaluation of Right Upper Extremity: The patient is alert, oriented, and in no acute distress Neuro: Median, Ulnar, Radial nerves motor and sensory intact and sensation is normal to the tips of all digits Vascular: Cap refill brisk ROM: He can make a fist and extend all his digits Skin: No lacerations or abrasions. General: No Ecchymosis. No Erythema or evidence of infection. Small ~3mm area of black hyperpigmented skin directly overlying the metal fragment, superficial to his basal joint, at the intersection between the glaborous and non-glaborous skin. Patient reports that the skin tented when tested with a magnet prior to an MRI. No tenderness Radiographs: 3 views of the right hand were taken and viewed by me today in clinic. They show a very small metallic fragment that appears to be just beneath the skin , roughly dorsal radial and overlying the basal joint Psych Appearance: grossly normal Affect: normal affect Attitude: cooperative Assessment & Plan Assessment & Plan (1) Metal foreign body in right hand: Code(s): S60.551A - Superficial foreign body of right hand, initial encounter Category: Medical (2) CHF (congestive heart failure): Code(s): I50.9 - Heart failure, unspecified Category: Medical Qualifiers: Heart failure chronicity: chronic Heart failure type: unspecified Qualified Code(s): I50.9 - Heart failure, unspecified (3) PAD (peripheral artery disease): Comment: 12/19 - left leg stenting in [place] Question of aortofemoral bypass Code(s): I73.9 - Peripheral vascular disease, unspecified Category: Medical (4) COPD (chronic obstructive pulmonary disease): Code(s): J44.9 - Chronic obstructive pulmonary disease, unspecified Category: Medical Qualifiers: COPD type: chronic bronchitis Chronic bronchitis type: simple Qualified Code(s): J41.0 - Simple chronic bronchitis (5) Diabetes mellitus: Code(s): E11.9 - Type 2 diabetes mellitus without complications Category: Medical Plan Assessment & Plan: 1. Right hand metallic foreign body I educated her about this condition I discussed operative and non-operative treatment options The patient would like to proceed with surgery The risks and benefits of operative treatment were discussed with the patient and the patient wishes to proceed with surgery. These risks include, but are not limited to risk of damage to blood vessels, nerves, tendons, infection, recurrence, incomplete relief of preoperative symptoms, persistent pain, possible need for further surgery and the risks associated with regional blocks and anesthesia. The plan is to take the patient to the operating room sometime in the next few weeks for the following procedures: 1. Right hand removal of foreign body, under local All of the preoperative paperwork including the consent was reviewed today. All the patient's questions were answered. The patient understands that they will be contacted by our surgery technician soon to schedule this procedure He denies blood thinners, asthma, kidney issues He is a Diabetic, his most recent HgA1c was 8.5% on 05/16/25. As this is a small procedure done under local, we can proceed with surgery despite his elevated HgA1c. He has a Hx of COPD, CHF, and PAD. He is not on blood thinners Scribed for Charlee Millan MD by Rai Rodrigues, medical center director, on 06/21/25 at 11:25 AM, EST. Orders: Orders XR hand RT min 3V Today M79.641 - Pain in right hand Coding Level of Care Code New Pt Level 4 (11664) Diagnoses Metal foreign body in right hand S60.551A Chronic congestive heart failure, unspecified heart failure type I50.9 Heart failure chronicity: chronic Heart failure type: unspecified PAD (peripheral artery disease) I73.9 Simple chronic bronchitis J41.0 COPD type: chronic bronchitis Chronic bronchitis type: simple Diabetes mellitus E11.9
== END 2025-06-21 11:46 | disposition home or self-care (01) ==
LOC: HO.HOS 10:58
PROVIDERS: PCP Internal Medicine; Visit Provider Orthopaedic Surgery
DX: S60.551A Superficial foreign body of right hand, initial encounter (principal); I50.9 Heart failure, unspecified; I73.9 Peripheral vascular disease, unspecified; J41.0 Simple chronic bronchitis; E11.9 Type 2 diabetes mellitus without complications
CPT/HCPCS: 99204

== ENCOUNTER → 2025-06-21 11:16 | Outpatient (BNV) | payer MEDICARE, MEDICAID, SELFPAY | PROVIDERS: PCP Internal Medicine; Visit Provider Radiology Diagnostic Radiology | DX: S60.551A Superficial foreign body of right hand, initial encounter (principal) | CPT/HCPCS: 73130 ==

== ENCOUNTER 2025-06-22 07:51 | Outpatient (REF) | payer MEDICARE, MEDICAID, SELFPAY ==
--- NOTE | 2025-06-22 07:54 | PFT_ITS ---
Flows: FEV1: 72 % of predicted at 1.81 L FVC: 69 % of predicted at 2.26 L FEV1/FVC: 80 % Bronchodilator response: Present Volumes: Total lung capacity: 59 % of predicted at 3.41 L Residual volume: 64 % of predicted at 1.40 L Slow vital capacity: 57 % of predicted at 2.01 L Expiratory reserve volume: 44 % of predicted at 0.39 L Diffusion capacity: Moderately decreased, adjusts to being mildly decreased after correction for alveolar ventilation. Impression: Moderate restrictive ventilatory defect with positive bronchodilator response. Decreased expiratory reserve volume suggests extrathoracic restriction likely secondary to abdominal obesity. Combination of restrictive ventilatory defect with decreased diffusion capacity suggests pulmonary parenchymal disease. Clinical correlation is advised. MTDD
[2025-06-22 08:48] VITALS: PULSE 75; O2SAT 97
== END 2025-06-22 07:52 | disposition home or self-care (01) ==
LOC: HO.RESP 07:51
PROVIDERS: PCP Internal Medicine; Visit Provider Hospitalist
DX: J96.11 Chronic respiratory failure with hypoxia (principal); G47.33 Obstructive sleep apnea (adult) (pediatric); I50.9 Heart failure, unspecified
CPT/HCPCS: 94010; 94640; 94727; 94729

== ENCOUNTER → 2025-06-22 07:54 | Outpatient (BNV) | payer MEDICARE, MEDICAID, SELFPAY | PROVIDERS: PCP Internal Medicine; Visit Provider Internal Medicine Pulmonary Disease | DX: J96.11 Chronic respiratory failure with hypoxia (principal) | CPT/HCPCS: 94060; 94727; 94729 ==

== ENCOUNTER 2025-06-29 10:08 | Outpatient (AMB) | payer MEDICARE, MEDICAID, SELFPAY ==
--- NOTE | 2025-06-29 10:11 | A.OFFVIS_ITS ---
Intake Visit Reasons: follow up US 04/2025 & Arterial US 05/2025 Intake Note: Patient presents for follow up arterial and ultrasounds. Patient has discoloration and swelling in both legs. Accompanied by: Family/Other Allergies No Known Allergies Allergy (Verified 06/29/25 10:16) [facility] follow up US 04/2025 & Arterial US 05/2025: Details: The patient is a 74-year-old male presenting for follow-up regarding arterial and venous disease. The patient reports bilateral leg swelling, which has been persistent. An ultrasound of the veins was performed and returned normal results, indicating no venous reflux. The patient has a history of arterial disease, for which a stent was placed in [place]. He now presents for follow-up with noninvasive arterial testing. The patient underwent heart surgery in the past, but no abdominal surgeries have been performed. Also of note he is oxygen dependent and being followed by Dr. Thapa from pulmonology. 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 Review of Systems Const Reports as per HPI ENT Reports no additional complaints Card Denies chest pain, Denies chest pain at rest and Denies chest pain with activity Resp Denies chest congestion and Denies cough GI Reports no additional complaints Musc Details: pain over varicosities, aching of lower extremities, swelling, cramping, heaviness and tiredness, itching Denies abnormal gait Skin/Breast Reports pruritus and Denies wounds Neuro Reports no additional complaints and Denies abnormal gait Psych Denies no additional complaints Physical Exam Const General: cooperative, healthy appearing and comfortable Orientation/consciousness: oriented to person, oriented to place and oriented to time Neck Carotids: no bruits Chest Chest palpation & inspection: normal inspection of the chest and normal palpation of entire chest wall Resp Effort & Inspection: normal respiratory effort and able to speak in complete sentences Cardio Other: Bilateral DP signals Rate: regular rate Heart sounds: S1 normal heart sound present and S2 normal heart sound present Peripheral pulses: Peripheral pulses 2+ throughout GI Inspection: Yes normal to inspection Skin Other: +2 edema, large rope-like varicosities greater than 4 mm CEAP Classification C4 - skin color changes Ep - Etiology Primary As - superficial veins P - reflux General skin exam: dry skin Neuro General: oriented to person, oriented to place and oriented to time Extrem Right lower extremity: full ROM, normal capillary refill and edema Left lower extremity: full ROM, normal capillary refill and edema Psych Mental Status: mental status grossly normal Results Reviewed Results Reviewed: Brief summary of venous insufficiency testing is as follows: right great saphenous vein: negative right small saphenous vein: negative right accessory vein: none present left great saphenous vein: negative left small saphenous vein: negative left accessory vein: none present Please note there is no evidence of any venous aneurysms or significant tortuosity Arterial testing dated 06/12/2025 demonstrates FILIPE on the right of 1.3 and on the left of 1.3. Stent appears to be patent. Written report and images were reviewed. Assessment & Plan Assessment & Plan (1) PAD (peripheral artery disease): Comment: 12/19 - left leg stenting in [place] which appears to be SFA Code(s): I73.9 - Peripheral vascular disease, unspecified Category: Medical Plan: In short patient has stable claudication. I did review the pathophysiology of peripheral vascular disease with the patient. In addition we did discuss routine conservative measures including a healthy diet and the importance of exercise and ambulation. We did discuss risk factor modification. The patient will continue to to follow-up with surveillance follow-up in approximately 6 m [facility]. Thank you for allowing us to participate in this patient's care. If there are any questions or concerns please do not hesitate to contact us. (2) Varicose veins of right lower extremity with inflammation: Code(s): I83.11 - Varicose veins of right lower extremity with inflammation Category: Medical Plan: Venous testing has shown to be negative would continue with routine conservative measures including compression elevation and exercise. He will continue to follow us for arterial disease. Orders: Orders US arterial duplex LE BI 6 Months I73.9 - Peripheral vascular disease, unspecified Coding Level of Care Code Est Pt Level 4 (32018) Diagnoses PAD (peripheral artery disease) I73.9 Varicose veins of right lower extremity with inflammation I83.11
== END 2025-06-29 10:27 | disposition home or self-care (01) ==
PROVIDERS: PCP Internal Medicine; Visit Provider Surgery Vascular Surgery
DX: I73.9 Peripheral vascular disease, unspecified (principal); I83.11 Varicose veins of right lower extremity with inflammation
CPT/HCPCS: 99214

== ENCOUNTER → 2025-06-29 10:08 | Outpatient (BNVA) | payer MEDICARE, MEDICAID, SELFPAY | PROVIDERS: PCP Internal Medicine; Visit Provider Surgery Vascular Surgery | DX: I73.9 Peripheral vascular disease, unspecified (principal); I83.11 Varicose veins of right lower extremity with inflammation; Z95.820 Peripheral vascular angioplasty status with implants and grafts | CPT/HCPCS: 99212 ==

== ENCOUNTER 2025-07-06 09:11 | Outpatient (AMB) | payer MEDICARE, MEDICAID, SELFPAY ==
[2025-07-06 09:14] VITALS: BP 114/56; PULSE 75; O2SAT 89; BMI 34.1
--- NOTE | 2025-07-06 09:14 | A.OFFVIS_ITS ---
Vital Signs 07/06/25 09:14 Height 5 ft 4 in Weight 198 lb 6.656 oz BMI 34.1 BP 114/56 L Blood Pressure Location Lt brachial Position Sitting Pulse 75 Pulse Source Pulse Oximeter Pulse Oximetry (%) 89 L Oxygen Delivery Method Nasal Cannula Oxygen Flow Rate 3 Intake Visit Reasons: copd Allergies No Known Allergies Allergy (Verified 07/06/25 09:19) HPI Comments Details: The patient is a 74-year-old gentleman with chronic respiratory failure, COPD, heart failure who apparently recently moved to the [facility]. The patient was in his usual state health until back in January when he started developing worsening shortness of breath in addition to lower extremity edema. He was taken to the [facility] ED where he was found to be volume overloaded and was placed on diuretics. He diuresed well and currently feeling better. He is still oxygen dependent. He did come from [place] on a portable oxygen concentrator and he is using a 3 L pulse. Therefore during the office visit we did take him off the oxygen and he actually saturating 93% on room air while sitting. But quickly when he went up and walked he dropped to 88% and was placed on 2 L pulse and then had to be increased to 3 L pulse to maintain a pulse ox of 94% with activity. Therefore will go ahead and request a POC for him to be use outside of the home for better portability a also needs a concentrator for the home for oxygen. The patient will also on the knee pulmonary function studies. He did have an x-ray already done at the ER which I personally reviewed demonstrating some reticular nodular opacities which could have been related to underlying interstitial lung disease and/or congestive heart failure. The patient also has a history of COPD and therefore will go ahead and start him on nebulizer machine in order for him to receive his nebulizer treatments twice a day. The patient is also having issues with daytime drowsiness. He has significant snoring at nighttime. He is also oxygen dependent at nighttime so therefore will request a in-lab sleep study to assess the likelihood of sleep apnea. If he does have sleep apnea he may be treated with CPAP or other PAP modalities. 07/06/2025 the patient is here for a pulmonary follow-up visit. Overall he is doing okay. He is using the POC with activity with good effect and he is using the oxygen at nighttime. Although is hard for him to use the nasal prongs because it bothers his nose. I will request a OxyMask that he can use the oxygen mask when he sleeping. Hopefully feels better with that. In the meantime the patient did have a in-lab sleep study. It demonstrated that indeed he has underlying sleep apnea. Will go ahead and request a titration study to see if he needs PAP therapy in addition to oxygen or PAP therapy by itself. The patient will continues use the oxygen in the time being. As far as his cardiac status he will be seeing Cardiology soon here. Therefore undergo a cardiac evaluation. The patient did have a chest x-ray back in January 2025 which I personally reviewed demonstrating some vascular engorgement but no obvious congestive heart failure or pleural effusions. We did review his pulmonary function studies. He has moderate restriction. We did provide him with an incentive spirometer for him to work on deep breathing exercise in his then expand his lungs. Will follow-up sometime after his titration study. If he has any issues he can always call for further recommendations. [facility] Medical History (Updated 07/06/25 @ 19:34 by Lucien Thapa MD) Chronic restrictive lung disease CHF (congestive heart failure) GER (obstructive sleep apnea) Chronic hypoxemic respiratory failure 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 2 diabetes mellitus associated with morbid obesity Hyperlipidemia Osteoarthritis Essential hypertension Oxygen dependent COPD (chronic obstructive pulmonary disease) Surgical History H/O aortic valve replacement Social History (Updated 07/06/25 @ 09:20 by Luna Ryan CMA) Patient Tobacco Use Status: Former Tobacco user Current occupational status: retired 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 Review of Systems Const Denies fever(s) Eyes Reports no additional complaints ENT Reports nasal congestion Card Denies chest pain, Reports leg edema and Reports dyspnea on exertion Resp Reports cough and Reports dyspnea on exertion GI Reports no additional complaints Reports no additional complaints Musc Reports abnormal gait Skin/Breast Denies rash Neuro Reports abnormal gait Antony/Lymph Reports no additional complaints Aller/Immun Reports no additional complaints Physical Exam Vital Signs: Last Vital Signs Pulse 75 07/06/25 09:14 BP 114/56 L 07/06/25 09:14 Pulse Ox 89 L 07/06/25 09:14 Oxygen Delivery Method Nasal Cannula 07/06/25 09:14 Oxygen Flow Rate 3 07/06/25 09:14 BMI result Body Mass Index 34.1 Const General: comfortable HEENT Head: Yes normocephalic Neck Neck: Yes supple Chest Chest palpation & inspection: normal inspection of the chest Resp Effort & Inspection: normal respiratory effort Auscultation: diminished lung sounds Cardio Heart sounds: S1 normal heart sound present and S2 normal heart sound present GI Palpation (GI): Soft to palpation Skin General skin exam: no rashes or lesions noted Extrem General: No clubbing and No cyanosis Assessment & Plan Assessment & Plan (1) CHF (congestive heart failure): Code(s): I50.9 - Heart failure, unspecified Category: Medical Qualifiers: Heart failure chronicity: chronic Heart failure type: unspecified Qualified Code(s): I50.9 - Heart failure, unspecified (2) Chronic hypoxemic respiratory failure: Code(s): J96.11 - Chronic respiratory failure with hypoxia Category: Medical (3) GER (obstructive sleep apnea): Code(s): G47.33 - Obstructive sleep apnea (adult) (pediatric) Category: Medical (4) COPD (chronic obstructive pulmonary disease): Code(s): J44.9 - Chronic obstructive pulmonary disease, unspecified Category: Medical Qualifiers: COPD type: chronic bronchitis Chronic bronchitis type: simple Qualified Code(s): J41.0 - Simple chronic bronchitis (5) Chronic restrictive lung disease: Code(s): J98.4 - Other disorders of lung Category: Medical Plan Duoneb BID continue 3L/pulse with activity with POC for better portability and 2l/min while sleeping ISS CXR In lab PSG titration study Diuresis as tolerated F/U 3-4 months Orders: Orders RT PSG in-lab sleep titration Today G47.33 - Obstructive sleep apnea (adult) (pediatric) XR chest 2V Today J41.0 - Simple chronic bronchitis, J96.11 - Chronic respiratory failure with hypoxia Coding Level of Care Code Est Pt Level 4 (18675) Complex EM visit Add On G2211 Diagnoses Chronic congestive heart failure, unspecified heart failure type I50.9 Heart failure chronicity: chronic Heart failure type: unspecified Chronic hypoxemic respiratory failure J96.11 GER (obstructive sleep apnea) G47.33 Simple chronic bronchitis J41.0 COPD type: chronic bronchitis Chronic bronchitis type: simple Chronic restrictive lung disease J98.4 Time Spent (min) 17
== END 2025-07-06 09:45 | disposition home or self-care (01) ==
PROVIDERS: PCP Internal Medicine; Visit Provider Hospitalist
DX: I50.9 Heart failure, unspecified (principal); J96.11 Chronic respiratory failure with hypoxia; G47.33 Obstructive sleep apnea (adult) (pediatric); J41.0 Simple chronic bronchitis; J98.4 Other disorders of lung
CPT/HCPCS: 99214; G2211

== ENCOUNTER → 2025-07-06 09:11 | Outpatient (BNVA) | payer MEDICARE, MEDICAID, SELFPAY | PROVIDERS: PCP Internal Medicine; Visit Provider Hospitalist | DX: J41.0 Simple chronic bronchitis (principal); I50.9 Heart failure, unspecified; J96.11 Chronic respiratory failure with hypoxia; G47.33 Obstructive sleep apnea (adult) (pediatric); J98.4 Other disorders of lung; Z99.81 Dependence on supplemental oxygen; Z87.891 Personal history of nicotine dependence | CPT/HCPCS: 99212 ==

== ENCOUNTER 2025-07-17 12:38 | Day surgery (SDC) | payer MEDICARE, MEDICAID, SELFPAY ==
[2025-07-17 05:46] VITALS: BMI 34.0
[2025-07-17 12:42] VITALS: BP 132/56; PULSE 78; RESP 18; TEMP 36.1; O2SAT 93
--- NOTE | 2025-07-17 13:57 | MHC.SHP ---
Pre-Procedural Eval Section A - 24 Hr Update-Section A only Date of Service: 07/17/25 The patient is an INPATIENT: No Changes since office visit: No Cold of Flu in the past 2 weeks, No New Medical Problems, No Changes in Medication and No Patient answered all questions The patient has been examined within 24 hours of the surgical procedure. The History & Physical has been completed within 30 days and I have reviewed it.: Yes Section B - Complete if H&P > 30 days Chief Complaint: Superficial foreign body of right hand, initial en Allergies: Allergies Allergy/AdvReac Type Severity Reaction Status Date / Time No Known Allergies Allergy Verified 07/06/25 09:19 Plan I have reviewed the history and physical and performed a pertinent physical examination on my patient. No changes have occurred unless specified. Time Spent With Patient Time: Total time managing care of this patient today ____ minutes.
--- NOTE | 2025-07-17 13:58 | P.OP_ITS ---
Operative Note Operative Note Date of Service: 07/17/25 Narrative: Operative Note Preop diagnosis: 1. Metallic foreign body superficial to the basal joint of the right hand Postop diagnosis: same Procedure: 1. Right hand removal of foreign body and biopsy of overlying blackened skin Surgeon: Charlee Millan MD [employer]teration: Oziel BARAJAS Anesthesia: digital block using 1% lidocaine with epinephrine Findings: There is an approximately 2-3 mm diameter area of black in skin that was somewhat raised superficial to the basal joint of the right thumb. Radiographs showed a small metallic foreign body in this area. This was ellipsed and sent to pathology for histopathology. EBL: Less than 5 mL Tourniquet time: None Specimens: Skin and foreign body from area dorsal radial and superficial to the basal joint of the right thumb Complications: None Disposition: Brought to recovery room in stable condition Plan: Follow-up for 7-10 days for wound check and suture removal and to check pathology Indications: The patient is a 74 years old, with a piece of metal imbedded in the skin and tissues just dorsal and radial to the basal joint of the right thumb. There was also an area of blackened skin in this area. Patient was not allowed to get an MRI until this metallic fragment is removed. . The risks and benefits of operative treatment including but not limited to risk of damage to blood vessels, nerves, tendons, infection, persistent pain, persistent symptoms, recurrence or possible need for additional surgery were discussed with the patient and the patient wishes to proceed with surgery. Procedure: Once consent was obtained a digital block was performed in the preop area using a combination of 1% lidocaine with epinephrine. The patient was then brought back to the operating suite and placed on the operative table in supine position. The right upper extremity was prepped and draped in a standard surgical fashion. Once assured that we had a good block, I made a longitudinally oriented incision creating an ellipse of skin proximally 1.5 cm long by 7 mm in width. This was centered on an area of hyperpigmented skin measuring about 3 mm in diameter with a piece of metallic foreign body within it. This was done using a 15. Blade. I then used iris scissors to dissect the skin from the underlying subcutaneous tissue. The skin with a small amount of subcutaneous tissue was removed and placed in the back table to be sent for histopathology. Once satisfied with with our excisional biopsy the wound was copiously irrigated with normal saline and hemostasis was obtained with a brief period of local pressure. I undermined the skin to mobilize it and facilitate a longitudinal closure. The skin edges were reapproximated with some 5.0 nylon suture material and a sterile dressing was applied. The patient appears to have tolerated the procedure well and with no complications. All digits were well vascularized at the conclusion of the case.
[2025-07-17 14:29] VITALS: BP 125/67; PULSE 16; RESP 16; TEMP 36.3; O2SAT 92
== END 2025-07-17 14:53 | disposition home or self-care (01) ==
PROVIDERS: PCP Internal Medicine; Visit Provider Orthopaedic Surgery
PROC: (CPT 10120; principal; 2025-07-17 14:10)
DX: M79.5 Residual foreign body in soft tissue (principal); M79.641 Pain in right hand; R20.0 Anesthesia of skin; R20.2 Paresthesia of skin; L81.9 Disorder of pigmentation, unspecified; X58.XXXA Exposure to other specified factors, initial encounter; Y93.89 Activity, other specified; Y92.9 Unspecified place or not applicable; Y99.9 Unspecified external cause status; E11.40 Type 2 diabetes mellitus with diabetic neuropathy, unspecified; I13.0 Hypertensive heart and chronic kidney disease with heart failure and stage 1 through stage 4 chronic kidney disease, or unspecified chronic kidney disease; I50.9 Heart failure, unspecified; N18.30 Chronic kidney disease, stage 3 unspecified; E11.22 Type 2 diabetes mellitus with diabetic chronic kidney disease; I73.9 Peripheral vascular disease, unspecified; J41.0 Simple chronic bronchitis; J44.9 Chronic obstructive pulmonary disease, unspecified; Z87.891 Personal history of nicotine dependence
CPT/HCPCS: 10120; 88304; J0165; J2003

== ENCOUNTER → 2025-07-17 12:38 | Outpatient (BNV) | payer MEDICARE, MEDICAID, SELFPAY | PROVIDERS: PCP Internal Medicine; Visit Provider Orthopaedic Surgery | DX: S60.551A Superficial foreign body of right hand, initial encounter (principal) | CPT/HCPCS: 10120 ==

== ENCOUNTER 2025-07-31 08:31 | Emergency (ER) | payer MEDICARE, MEDICAID, SELFPAY ==
--- NOTE | ~2025-07-31 | CT_ITS ---
EXAMINATION: CT ABDOMEN AND PELVIS WITHOUT CONTRAST CLINICAL INFORMATION: Left lower quadrant pain. COMPARISON: None available. TECHNIQUE: Multidetector volumetric imaging was performed from the superior aspect of the liver through the pubic symphysis. Sagittal and coronal reformatted images were obtained on the technologist's workstation. This CT examination was performed using dose optimization techniques as appropriate, variously including the following: *Automated exposure control *Adjustment of mA and/or kV according to patient size (this includes techniques or standardized protocols for targeted exams where dose is matched to indication/reason for exam; i.e. extremities or head) *Use of iterative reconstruction technique DLP: 789 mGy-cm FINDINGS: Inadequate evaluation of the intra-abdominal organs and vascular structures due to lack of IV contrast. LUNG BASES: Bilateral pulmonary mosaic pattern. 3 mm calcified pulmonary nodule, granuloma, right lower lung lobe. LIVER, GALLBLADDER, AND BILIARY TREE: Liver measures 10 cm. Nodular surface. Prominent caudate lobe. Gallbladder is nondistended. No pericholecystic fluid collection or gallbladder wall thickening. No intrahepatic or extrahepatic biliary ductal dilatation. PANCREAS: No peripancreatic fluid collections. No main pancreatic ductal dilatation. SPLEEN: 9 cm. ADRENAL GLANDS: Soft tissue fullness. No nodular lesion. KIDNEYS AND URETERS: No hydronephrosis. Punctate calcifications in the left renal hilum probable vascular. Bilateral perinephric edema pattern. No gross fluid collections. No dilatation of the ureters. BLADDER: Fluid-filled. Nondistended. GASTROINTESTINAL TRACT: Appendicolith and inspissated secretions in the appendix. Stool within nondilated large intestine. No pneumatosis intestinalis. Gas and fluid-filled mildly prominent small bowel loops. No intestinal obstruction pattern. No ascites. No pneumoperitoneum. No fluid collections, peritoneal cavity. ABDOMINAL WALL: No gross umbilical hernia. Diastases abdominal rectus muscles, periumbilical region. LYMPH NODES: Nonspecific mild prominent mesenteric lymph nodes. Prominent lymph nodes in the left inguinal... VASCULAR: Mixed plaques throughout the abdominal aorta wall and iliac arteries mesenteric arteries left renal arteries and femoral arteries. No aneurysm, abdominal aorta. Calcified plaques in the aortic valve and mitral valve. Calcified plaques in the coronary arteries and descending thoracic aorta. PELVIC VISCERA: Inadequate evaluation. Prostate gland is not enlarged. OSSEOUS STRUCTURES: Sternal wires . Multilevel thoracolumbar spondylosis pronounced at L4-5 and L5-S1 resulting in bilateral neuroforamina stenosis. Spina bifida occulta, S1. Sclerosis and the sacroiliac joints. Osteopenia versus osteoporosis. Bone marrow inhomogeneity suggesting calcium metabolic disorders. Prominent breast tissue, bilaterally. CT/CT abdomen pelvis wo IV con IMPRESSION: Abundant stool without intestinal obstruction pattern. Mild enteritis cannot be excluded. 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 Coronary artery disease and atherosclerosis disease. Pulmonary mosaic pattern suggesting mild interstitial lung edema versus small airway disease versus small pulmonary artery disease. Gynecomastia, bilaterally. Multilevel spondylosis resulting in bilateral neuroforamina stenosis L4-5 and L5-S1. Calcified mitral valve and aortic valve. Fleischner guidelines were followed. Electronically signed by: Jun Gill MD 07/31/2025 10:27 AM LISETTE
[2025-07-31 08:39] VITALS: BP 136/64; PULSE 74; RESP 20; TEMP 36.6; O2SAT 90; BMI 33.9
[2025-07-31 08:57] LABS: MANUAL DIFF FLAG NO
[2025-07-31 08:59] LABS: Appearance Urine Clear; Glucose Urine UA Negative (Negative); PH 5.5 (5.0-9.0); Specific Gravity - Urine 1.020 (1.005-1.025); UMIC TRIGGER UACC YES
[2025-07-31 09:01] LABS: Hematocrit 48.3 % (42.0-52.0); Hemoglobin 15.3 g/dl (14.0-18.0); Imm Gran Abs Auto 0.14 X10*3/uL (0.00-0.03); Imm Gran Pct Auto 1.0 % (0.0-0.4); Lymphocytes Absolute Auto 1.2 X10*3/uL (1.2-4.9); Mean Corpuscular HGB Conc 31.7 g/dl (31.0-36.0); Mean Corpuscular Hemoglobin 28.7 pg (27.0-33.0); Mean Corpuscular Volume 90.4 fL (80.0-98.0); NRBC Abs Auto 0.000 X10*3/uL (0.0-0.012); NRBC Pct Auto 0.0 /100WBC (0.0-0.2); Platelet Count 202 X10*3/uL (160-400); Red Blood Count 5.34 X10*6/uL (4.60-5.80); White Blood Count 13.9 X10*3/uL (4.8-10.8)
--- NOTE | 2025-07-31 09:01 | ED.ABDPAIN ---
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 He denies mass in that area. He has no fevers. He has normal soft brown stool. He denies hematuria. He states he did not have an injury and had a normal day yesterday. He has no hx of renal colic or diverticulitis. He took no medications for pain at home. MD elicited complaint: abdominal pain Pertinent past history: none Onset (ago): hour(s) (2am today) Pain Consistency: constant Location: LLQ Severity: moderate Quality: aching Radiation: none Migration to: no migration Exacerbating factors: movement Relieving factors: nothing Context: other Associated symptoms: nausea Related Data Home Medications ?Medication ?Instructions ?Recorded ?Confirmed atorvastatin 20 mg tablet 20 mg PO DAILY 03/28/25 07/17/25 clopidogrel 75 mg tablet 75 mg PO DAILY 03/28/25 07/17/25 insulin lispro 100 unit/mL subcut 03/28/25 05/31/25 subcutaneous solution (Humalog U-100 Insulin) insulin syringe-needle U-100 0.5 #10 ea 03/28/25 05/31/25 mL 31 gauge x 5/16 linagliptin 2.5 mg-metformin 500 2.5 tab PO BID 03/28/25 07/17/25 mg tablet (Jentadueto) metoprolol tartrate 50 mg tablet 50 mg PO BID 03/28/25 07/17/25 nitroglycerin 0.4 mg sublingual 1 mg sublingual USEASDIRECTD PRN 03/28/25 07/17/25 tablet Chest Pain spironolactone 25 mg tablet 25 mg PO DAILY 03/28/25 07/17/25 Previous Rx's ?Medication ?Instructions ?Recorded ezetimibe 10 mg tablet 10 mg PO DAILY #30 tabs 02/23/25 furosemide 20 mg tablet 20 mg PO DAILY #30 tabs 02/23/25 ipratropium 0.5 mg-albuterol 3 mg 3 ml inhalation BID 30 days #180 mL 03/28/25 (2.5 mg base)/3 mL nebulization soln hydrocodone 5 mg-acetaminophen 325 1 tab PO Q6H PRN pain #5 tabs 10/20/25 mg tablet docusate sodium 100 mg capsule 100 mg PO BID constipation #60 caps 07/31/25 (Colace) sennosides 8.6 mg capsule (senna) 8.6 mg PO BEDTIME PRN constipation 07/31/25 #30 caps Allergies Allergy/AdvReac Type Severity Reaction Status Date / Time No Known Allergies Allergy Verified 07/31/25 08:42 Review of Systems Review of Systems Constitutional : No Weight loss, No Fever, No Chills ENT/Mouth : No sore throat, No Rhinorrhea Eyes: No Swelling, No Redness Cardiovascular : No Chest Pain, No SOB, No edema Respiratory : No Cough, No Sputum, No Wheezing Gastrointestinal : Positive Nausea, no Vomiting, no Diarrhea, positive abdominal Pain, No Hematochezia, No Melena Genitourinary : No Dysuria, No Urinary Frequency, No Hematuria, No Urgency Musculoskeletal : No joint pain, No Myalgias, No Joint Swelling Skin : No Skin Lesions, No rash Neuro : No Weakness, No Numbness, No Dizziness, No Headache All other systems reviewed and are negative. COUNT INCLUDES THE [facility] Past Medical History Attestation statement: The following information was validated with the patient. 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 morbid obesity Hyperlipidemia Osteoarthritis Essential hypertension Oxygen dependent COPD (chronic obstructive pulmonary disease) Surgical History H/O aortic valve replacement Social History Social History Patient Tobacco Use Status: Former Tobacco user Advance Directives: No Advance Directives Information Provided: Yes Current occupational status: retired 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 Oriented X3. No acute distress. Eyes: Pupils equal, round and reactive to light. ENT: Pharynx normal. Neck: Normal inspection. Neck supple. CVS: Normal heart rate and rhythm. Pulses are diminished but feet are warm Respiratory: No respiratory distress. Breath sounds diminished Abdomen: Soft and ttp in LLQ I see no hernia and feel no mass. He has no rebound Skin: Skin warm and dry. Normal skin color. Extremities: No lower extremity edema. Neuro: Oriented X 3. No motor deficit. No sensory deficit. CN2-12 intact Medical Decision Making Medical Decision Making [facility] Narrative: 74 yo male with PMH of PAD, COPD on 2L NC, DM, GER, CHF, HLD here with c/o abrupt onset left lower quadrant pain starting at 02:00 he has mild nausea on exam he has a relatively benign abdomen he has no rebound I do not appreciate any hernias on exam. At this time I am going to obtain basic labs urine study CT scan to assess for diverticular disease, constipation, and renal colic. We will start on IV Tylenol may need escalating doses of pain control. He has chronic respiratory failure is maintained on 3 L nasal cannula and he denies any new respiratory issues or increased work of breathing. Differential Diagnosis Differential Diagnoses: The differential diagnosis associated with the presentation includes Diverticular pathology renal colic constipation Admission/Observation Consideration of admission/observation: Escalation of care including admission/observation considered Labs reassuring other than mild elevation white blood cell count, CT scan shows no acute pathology other than constipation, he is supposed to take medications at home after talking to him I suspect that this is MiraLax though he has not been taking it Plan to DC home on Colace and senna with return precautions Lab Data [facility] Lab Attestation statement: I reviewed the patient's lab results. 07/31/25 08:51 07/31/25 08:51 Labs: Lab Results 07/31/25 Range/Units 08:51 WBC 13.9 H (4.8-10.8) X10*3/uL RBC 5.34 (4.60-5.80) X10*6/uL Hgb 15.3 (14.0-18.0) g/dl Hct 48.3 (42.0-52.0) % MCV 90.4 (80.0-98.0) fL MCH 28.7 (27.0-33.0) pg MCHC 31.7 (31.0-36.0) g/dl RDW 14.1 (11.0-16.0) % Plt Count 202 (160-400) X10*3/uL MPV 9.8 (9.4-12.4) fL Immature Gran % (Auto) 1.0 H (0.0-0.4) % Neut % (Auto) 79.5 H (45-73) % Lymph % (Auto) 8.6 L (20-40) % Granite % (Auto) 9.4 (2-11) % Eos % (Auto) 1.2 (0-4) % Baso % (Auto) 0.3 (0-2) % Lymph # (Auto) 1.2 (1.2-4.9) X10*3/uL Granite # (Auto) 1.3 H (0.1-1.2) X10*3/uL Eos # (Auto) 0.2 (0.0-0.4) X10*3/uL Baso # (Auto) 0.0 (0.0-0.2) X10*3/uL Abs Immat Gran (auto) 0.14 H (0.00-0.03) X10*3/uL Absolute Neuts (auto) 11.0 H (2.0-8.3) x10*3/uL Absolute Nucleated RBC 0.000 (0.0-0.012) X10*3/uL Nucleated RBC % (auto) 0.0 (0.0-0.2) /100WBC Sodium 137 (135-145) mmol/L Potassium 4.4 (3.3-5.1) mmol/L Chloride 108 (96-108) mmol/L Carbon Dioxide 23 (22-29) mmol/L Anion Gap 10 L (12-20) BUN 22 H (9-16) mg/dL Creatinine 1.42 H (0.5-1.4) mg/dL Estim Creat Clear Calc 46.0 Estimated GFR 49 Random Glucose 160 H (60-115) mg/dL Calcium 9.3 (8.4-10.2) mg/dL Total Bilirubin 1.1 H (0.0-1.0) mg/dL Direct Bilirubin 0.4 (0.0-0.5) mg/dL AST 27 (5-37) U/L ALT 20 (0-40) U/L Alkaline Phosphatase 72 (39-117) U/L Total Protein 7.5 (6.5-8.0) g/dL Albumin 4.4 (3.5-5.0) g/dL Lipase 19 (8-78) U/L Urine Color Yellow Urine Appearance Clear Urine pH 5.5 (5.0-9.0) Ur Specific [place] 1.020 (1.005-1.025) Urine Protein 30 (1+) H (Neg-Trace) mg/dL Urine Glucose (UA) Negative (Negative) mg/dL Urine Ketones Negative (Negative) mg/dL Urine Blood Negative (Negative) Urine Nitrite Negative (Negative) Ur Leukocyte Esterase Trace H (Negative) Urine RBC 0-2 (0-2) /HPF Urine WBC 0-5 (0-5) /HPF Ur Squamous Epith Cells 0-2 (0-2) /HPF Urine Bacteria None Seen (None Seen) Hyaline Casts 0-2 (0-2) /LPF Independent Interpretation I performed an independent interpretation of an: CT Scan (constipation) Radiology Impression Discussion of test interpretation with radiology: I have reviewed the radiologist's reading. Independent Historian Clinical information obtained from an independent historian. History obtained from or confirmed by: Other External Record Review External record reviewed: Inpatient record and Outpatient record Medications Administered Discontinued Medications Generic Name Dose Route Start Last Admin Trade Name Freq PRN Reason Stop Dose Admin Acetaminophen 1,000 mg in 100 mls @ 400 mls/hr 07/31/25 09:11 07/31/25 09:26 Ofirmev IV 07/31/25 09:25 400 mls/hr ONCE ONE Administration Discharge Plan Discharge Clinical Impression: Constipation Patient Disposition: Home, Self-Care Instructions: Constipation (ED) Additional Instructions: At this time your labs and CT scan are reassuring Your CT scan does show constipation Please eat a well-balanced diet, take medications as prescribed Return for any worsening pain, unable to eat or drink, fevers over 101, or any other concerns Prescriptions: New docusate sodium [Colace] 100 mg capsule 100 mg PO BID Qty: 60 0RF senna 8.6 mg capsule 8.6 mg PO BEDTIME PRN (Reason: constipation) Qty: 30 0RF No Action furosemide 20 mg tablet 20 mg PO DAILY Qty: 30 0RF ezetimibe 10 mg tablet 10 mg PO DAILY Qty: 30 0RF hydrocodone-acetaminophen 5-325 mg tablet 1 tab PO Q6H PRN (Reason: pain) Qty: 5 0RF Rx Instructions: Partial Fill upon patient request. atorvastatin 20 mg tablet 20 mg PO DAILY clopidogrel 75 mg tablet 75 mg PO DAILY spironolactone 25 mg tablet 25 mg PO DAILY metoprolol tartrate 50 mg tablet 50 mg PO BID nitroglycerin 0.4 mg tablet, sublingual 1 mg sublingual USEASDIRECTD MDD 3 PRN (Reason: Chest Pain) insulin lispro [Humalog U-100 Insulin] 100 unit/mL solution subcut (DME) insulin syringe-needle U-100 0.5 mL 31 gauge x 5/16 syringe See Rx Instructions .ROUTE .MEDSUPPLY Qty: 10 Rx Instructions: As directed Jentadueto 2.5-500 mg tablet 2.5 tab PO BID ipratropium-albuterol 0.5 mg-3 mg(2.5 mg base)/3 mL solution for nebulization 3 ml inhalation BID 30 Days Qty: 180 11RF Print Language: Latvian
[2025-07-31 09:20] LABS: Alanine Aminotransferase 20 U/L (0-40); Albumin Level 4.4 g/dL (3.5-5.0); Alkaline Phosphatase 72 U/L (39-117); Anion Gap 10 (12-20); Aspartate Amino Transferase 27 U/L (5-37); Blood Urea Nitrogen 22 mg/dL (9-16); Calcium 9.3 mg/dL (8.4-10.2); Carbon Dioxide 23 mmol/L (22-29); Chloride 108 mmol/L (96-108); Creatinine Clr Calc Pharmacy 46.0; Estimated Glomerular Filt Rate 49; Lipase 19 U/L (8-78); Potassium 4.4 mmol/L (3.3-5.1); Sodium 137 mmol/L (135-145); Total Protein 7.5 g/dL (6.5-8.0)
--- NOTE | 2025-07-31 09:31 | PC.NURSE ---
Pt is caox4, is in no dostress. indicates pain to llq, his bd is soft nontender with no discoloration. mediacted as ordered and awaiting ct.
[2025-07-31 11:16] VITALS: BP 136/64; PULSE 74; RESP 20; TEMP 36.6; O2SAT 90
== END 2025-07-31 11:43 | disposition home or self-care (01) ==
PROVIDERS: Emergency Provider Emergency Medicine; PCP Internal Medicine
DX: K59.00 Constipation, unspecified (principal); I13.0 Hypertensive heart and chronic kidney disease with heart failure and stage 1 through stage 4 chronic kidney disease, or unspecified chronic kidney disease; I50.9 Heart failure, unspecified; N18.30 Chronic kidney disease, stage 3 unspecified; E11.22 Type 2 diabetes mellitus with diabetic chronic kidney disease; J44.9 Chronic obstructive pulmonary disease, unspecified; Z99.81 Dependence on supplemental oxygen; Z79.899 Other long term (current) drug therapy
CPT/HCPCS: 36415; 74176; 80053; 81001; 82248; 83690; 85025; 99284; J0131

== ENCOUNTER → 2025-07-31 09:21 | Outpatient (BNV) | payer MEDICARE, MEDICAID, SELFPAY | PROVIDERS: Emergency Provider Emergency Medicine; PCP Internal Medicine; Visit Provider Radiology Diagnostic Radiology | DX: R10.32 Left lower quadrant pain (principal); I25.10 Atherosclerotic heart disease of native coronary artery without angina pectoris; M47.816 Spondylosis without myelopathy or radiculopathy, lumbar region; M48.061 Spinal stenosis, lumbar region without neurogenic claudication; I34.81 Nonrheumatic mitral (valve) annulus calcification | CPT/HCPCS: 74176 ==

== ENCOUNTER 2025-08-14 12:49 | Outpatient (AMB) | payer MEDICARE, MEDICAID, SELFPAY ==
--- NOTE | 2025-08-14 12:55 | MHC.OFFVIS ---
Vital Signs 08/14/25 12:56 Height 5 ft 4 in Weight 201 lb 8.04 oz BMI 34.6 BP 128/72 Blood Pressure Location Lt brachial Position Sitting Pulse 96 Pulse Source Monitor Intake Visit Reasons: psych arnp/dr. antoine/ernesto Facility Maintenance Helper Required: Yes Facility Maintenance Helper Services: Facility Maintenance Helper Present Facility Maintenance Helper Name: anup cantu [phone] vianey Adoption Specialist: Adoption Specialist Present Accompanied by: Son Allergies No Known Allergies Allergy (Verified 08/14/25 13:02) Medication List - Last Reconciled 08/14/25 by Michael Gage NP atorvastatin 20 mg PO DAILY clopidogrel 75 mg PO DAILY docusate sodium (Colace) 100 mg PO BID ezetimibe 10 mg PO DAILY furosemide 20 mg PO DAILY hydrocodone-acetaminophen 5-325 mg 1 tab PO Q6H PRN insulin lispro (Humalog U-100 Insulin) subcut insulin syringe-needle U-100 As directed ipratropium-albuterol 0.5 mg-3 mg(2.5 mg base)/3 mL 3 mL inhalation BID 30 days linagliptin-metformin 2.5-500 mg (Jentadueto) 2.5 tabs PO BID metoprolol tartrate 50 mg PO BID PRN nitroglycerin 1 mg sublingual USEASDIRECTD PRN MDD 3 sennosides (senna) 8.6 mg PO BEDTIME PRN spironolactone 25 mg PO DAILY HPI Comments Details: This is a 74-year-old male patient new to our office referred by PCP for establishing care [place]. Moving forward, patient will be under Dr. 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 Patient is accompanied today by his son and a virtual press bucker was used throughout the visit. Patient with significant medical history of aortic stenosis status post bioprosthetic valve replacement in 2019, hypertension, hyperlipidemia, diabetes, sleep apnea, CKD, COPD on 3 L nasal cannula, and peripheral arterial disease status post left leg stenting in [place]. Patient was following wastewater technician, Dr. Snow in [place] and we will try to obtain all his records from there. Patient notes that about a week ago patient was at [facility] for dizziness where they work patient up for stroke rule out. Patient states that he had the dizziness because he has been vomiting from eating some bad food. Patient reports intermittent leg swelling which is chronic for him due to PAD, followed by Dr. Valenzuela. Patient is otherwise reporting feeling well overall without any cardiac symptoms of exertional chest pain, shortness of breath, palpitations, dizziness, orthopnea, PND, presyncope or syncope. Patient is reporting compliance with all his medications. Patient does note right arm pain for which patient is getting an MRI with PCP. 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 2 diabetes mellitus associated with morbid obesity Hyperlipidemia Osteoarthritis Essential hypertension Oxygen dependent COPD (chronic obstructive pulmonary disease) Surgical History (Updated 08/14/25 @ 15:20 by Michael Gage NP) H/O aortic valve replacement Family History (Updated 08/14/25 @ 13:05 by Gianluca Guardado CNA) Brother Cardiac disease Father Cardiac disease Mother Cardiac disease Heart problem Social History (Updated 08/14/25 @ 13:05 by Gianluca Guardado CNA) Alcohol intake: former Patient Tobacco Use Status: Former Tobacco user Current occupational status: retired 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 Review of Systems Const Denies daytime sleepiness, Denies difficulty sleeping, Denies snoring, Denies stops breathing during sleep and Denies weakness Card Denies chest pain, Reports rapid heart rate, Denies irregular heart rhythm, Denies claudication, Reports leg edema, Denies lightheadedness, Reports palpitations, Reports dyspnea, Denies dyspnea on exertion, Denies orthopnea, Denies paroxysmal nocturnal dyspnea and Denies slow heart rate Resp Denies cough, Reports dyspnea, Denies dyspnea on exertion and Denies snoring GI Reports no additional complaints, Denies hematochezia, Denies change in stool character and Denies dyspepsia Musc Denies abnormal gait, Denies muscle weakness and Denies numbness Neuro Denies abnormal gait, Denies numbness and Denies weakness Endo Reports palpitations Physical Exam Vital Signs: Last Vital Signs Pulse 96 08/14/25 12:56 BP 128/72 08/14/25 12:56 BMI result Body Mass Index 34.6 Const General: cooperative, healthy appearing, comfortable and no acute distress Orientation/consciousness: patient oriented x3 HEENT Head: Yes normal to inspection Neck Neck: Yes normal visual inspection, Yes trachea midline and Yes supple Chest Chest palpation & inspection: normal inspection of the chest Resp Other: On 3 L continuous O2 via nasal cannula Effort & Inspection: normal respiratory effort Auscultation: clear to auscultation bilaterally, no crackles, no rales, no rhonchi and no wheezes Cardio Jugular venous distension: no JVD Palpation: normal PMI Rate: regular rate Rhythm: regular rhythm Heart sounds: S1 normal heart sound present, S2 normal heart sound present, no click, no gallops, no murmurs and no rubs Peripheral pulses: Peripheral pulses 2+ throughout GI Inspection: Yes normal to inspection Palpation (GI): Soft to palpation Auscultation: normal bowel sounds Skin General skin exam: no rashes or lesions noted Neuro General: patient oriented x3 Extrem Other: Nonpitting edema to bilateral lower legs General: Yes normal to inspection Psych Appearance: grossly normal Mental Status: mental status grossly normal Speech and movement: Normal speech and movement present Office Procedures EKG Details: EKG today showed sinus rhythm, rate of 96 beats per minute, with PACs, left posterior fascicular block, nonspecific ST-T wave, [place], [place]. [id number], Complete Assessment & Plan Assessment & Plan (1) CHF (congestive heart failure): Code(s): I50.9 - Heart failure, unspecified Category: Medical Qualifiers: Heart failure type: unspecified Heart failure chronicity: chronic Qualified Code(s): I50.9 - Heart failure, unspecified Plan: 08/07/2025-echo study from [facility] shows normal LV systolic function with an ejection fraction between 60-65% with no wall motion abnormalities, mildly increased LV wall thickness, presence of bioprosthetic aortic valve with a mean gradient of 10 mmHg, moderate mitral annular calcification, and pulmonary hypertension with right ventricular dysfunction. History of congestive heart failure. Chronic bilateral lower extremity swelling, could be multifactorial. Continue with Lasix and spironolactone. Advised on low-salt diet, daily weight monitoring, and wearing compression socks. Patient verbalizes understanding of the plan. Clinically stable at this time. We will try and get records from his previous wastewater technician. (2) History of aortic valve replacement with bioprosthetic valve: Code(s): Z95.3 - Presence of xenogenic heart valve Category: Surgical Plan: History of aortic stenosis status post bioprosthetic valve replacement in 2019. Recent echo shows a mean gradient of 10 mmHg. Continue Plavix therapy. (3) Essential hypertension: Code(s): I10 - Essential (primary) hypertension Category: Medical Plan: Blood pressure today is well-controlled. Continue current regimen with a blood pressure goal less than 130/80. Advised on monitoring blood pressures at home and maintaining a log of it. Advised on low-salt diet. (4) Hyperlipidemia: Code(s): E78.5 - Hyperlipidemia, unspecified Category: Medical Plan: Most recent LDL at 69, from discharge summary at [facility]. Continue statin and Zetia therapy with LDL goal less than 70. (5) Diabetes mellitus: Code(s): E11.9 - Type 2 diabetes mellitus without complications Category: Medical Plan: A1c most recently at 8.5%. Ideally, A1c goal less than 7%. Continue with aggressive diabetes management. Followed by PCP. (6) PAD (peripheral artery disease): Comment: 12/19 - left leg stenting in [place] which appears to be SFA Code(s): I73.9 - Peripheral vascular disease, unspecified Category: Medical Plan: History of bilateral peripheral vascular disease status post left leg stenting back in [place]. Followed by Dr. Valenzuela. (7) COPD (chronic obstructive pulmonary disease): Code(s): J44.9 - Chronic obstructive pulmonary disease, unspecified Category: Medical Qualifiers: COPD type: chronic bronchitis Chronic bronchitis type: simple Qualified Code(s): J41.0 - Simple chronic bronchitis Plan: On continuous 3 L O2 supplement via nasal cannula. Continue the same. Followed by pulmonology. (8) GER (obstructive sleep apnea): Code(s): G47.33 - Obstructive sleep apnea (adult) (pediatric) Category: Medical Plan: Continue CPAP therapy. Advised on heart healthy diet, regular exercise as tolerated, weight loss, med compliance, and aggressive management of vascular risk factors. Follow up in 4 months. In the interim, patient will call the office with any concerns or change in symptoms. Advised to seek ER care in case of exertional chest pain not resolved with rest. This note was generated using voice recognition software. While every effort has been made to ensure accuracy and proper transportation economics teacher, there may be occasional errors that could affect the content or meaning of the described symptoms. Orders: Orders AMB EKG-In Office Today I50.9 - Heart failure, unspecified Coding Level of Care Code New Pt Level 4 (14607) Complex EM visit Add On G2211 Diagnoses Chronic congestive heart failure, unspecified heart failure type I50.9 Heart failure type: unspecified Heart failure chronicity: chronic History of aortic valve replacement with bioprosthetic valve Z95.3 Essential hypertension I10 Hyperlipidemia E78.5 Diabetes mellitus E11.9 PAD (peripheral artery disease) I73.9 Simple chronic bronchitis J41.0 COPD type: chronic bronchitis Chronic bronchitis type: simple GER (obstructive sleep apnea) G47.33 CPT Codes EKG - CPT: [id number], Complete ([id number]) Time Spent (min) 36 Comment Time spent in reviewing the chart, test results, assessment, counseling and documentation.
[2025-08-14 12:56] VITALS: BP 128/72; PULSE 96; BMI 34.6
== END 2025-08-14 13:52 | disposition home or self-care (01) ==
LOC: HO.HCS 12:50
PROVIDERS: PCP Internal Medicine
DX: I50.9 Heart failure, unspecified (principal); Z95.3 Presence of xenogenic heart valve; I10 Essential (primary) hypertension; E78.5 Hyperlipidemia, unspecified; E11.51 Type 2 diabetes mellitus with diabetic peripheral angiopathy without gangrene; I73.9 Peripheral vascular disease, unspecified; J41.0 Simple chronic bronchitis; G47.33 Obstructive sleep apnea (adult) (pediatric)
CPT/HCPCS: 93010; 99204; G2211

== ENCOUNTER → 2025-08-14 12:49 | Outpatient (BNVA) | payer MEDICARE, MEDICAID, SELFPAY | PROVIDERS: PCP Internal Medicine | DX: I13.0 Hypertensive heart and chronic kidney disease with heart failure and stage 1 through stage 4 chronic kidney disease, or unspecified chronic kidney disease (principal); I50.9 Heart failure, unspecified; Z95.3 Presence of xenogenic heart valve; Z87.891 Personal history of nicotine dependence; E11.9 Type 2 diabetes mellitus without complications; Z79.4 Long term (current) use of insulin; Z99.81 Dependence on supplemental oxygen; Z79.01 Long term (current) use of anticoagulants; G47.33 Obstructive sleep apnea (adult) (pediatric); Z99.89 Dependence on other enabling machines and devices; N18.30 Chronic kidney disease, stage 3 unspecified; E78.5 Hyperlipidemia, unspecified; I73.9 Peripheral vascular disease, unspecified; J41.0 Simple chronic bronchitis | CPT/HCPCS: 93005; 99202 ==

== ENCOUNTER 2025-08-15 09:50 | Outpatient (AMB) | payer MEDICARE, MEDICAID, SELFPAY ==
--- NOTE | 2025-08-15 10:04 | MHC.OFFVIS ---
Vital Signs 08/15/25 10:05 Height 5 ft 4 in Weight 201 lb BMI 34.5 Intake Visit Reasons: PO-Rt Hand FOB Removal 07/31/25 Intake Note: Cholo is a 74 year old right hand dominant male who presents today for a Post-operative Visit status post Right Hand Foreign Body Removal & Biopsy, DOS: 07/17/[address] Millan. Patient reports he is doing well. No concerns today. 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 Millan. Patient reports he is doing well. Patient reports that he has no pain around the incision site, denies redness, discharge, or other signs of infection. No concerns today. 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 2 diabetes mellitus associated with morbid obesity Hyperlipidemia Osteoarthritis Essential hypertension Oxygen dependent COPD (chronic obstructive pulmonary disease) Surgical History (Updated 08/14/25 @ 15:20 by Michael Gage NP) H/O aortic valve replacement Family History (Updated 08/14/25 @ 13:05 by Gianluca Guardado CNA) Brother Cardiac disease Father Cardiac disease Mother Cardiac disease Heart problem Social History (Updated 08/14/25 @ 13:05 by Gianluca Guardado CNA) Alcohol intake: former Patient Tobacco Use Status: Former Tobacco user Current occupational status: retired 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 Review of Systems Const All systems reviewed & are unremarkable except as noted in HPI and below Physical Exam Vital Signs: BMI result Body Mass Index 34.5 Const General: cooperative, healthy appearing and no acute distress Orientation/consciousness: patient oriented x3 HEENT Head: Yes normocephalic and Yes atraumatic Eyes EOM: EOMs intact bilaterally Resp Effort & Inspection: normal respiratory effort and able to speak in complete sentences Cardio Jugular venous distension: no JVD Skin General skin exam: turgor normal Rashes: no rashes Neuro General: patient oriented x3 Extrem Other: Evaluation of Right Upper Extremity: The patient is alert, oriented, and in no acute distress Neuro: Median, Ulnar, Radial nerves motor and sensory intact and sensation is normal to the tips of all digits Vascular: Cap refill brisk ROM: He can make a fist and extend all his digits Skin: No lacerations or abrasions. General: No Ecchymosis. No Erythema or evidence of infection. Incision noted over the area where the foreign body was once located superficial to his basal joint, at the intersection between the glaborous and non-glaborous skin. No tenderness Psych Appearance: grossly normal Affect: normal affect Attitude: cooperative Assessment & Plan Assessment & Plan (1) Metal foreign body in right hand: Code(s): S60.551A - Superficial foreign body of right hand, initial encounter Category: Medical Plan 1. Status post foreign body removal of right hand DOS 07/31/2025 Patient appears to be recovering well postoperatively Patient is educated about the typical recovery course No under water times one-week, 2 lb weight limit x2 weeks Patient appears to be recovering very well, and requires no further acute follow-up with us postoperatively Patient is educated and worrisome signs and symptoms, and should call us if they experience any of these, including but not limited to redness, swelling, increased pain, and discharge Patient understands this and is amenable to this plan Follow-up as needed Coding Level of Care Code Global (19632) Diagnoses Metal foreign body in right hand S60.551A
[2025-08-15 10:05] VITALS: BMI 34.5
== END 2025-08-15 10:30 | disposition home or self-care (01) ==
LOC: HO.HOS 09:50
PROVIDERS: PCP Internal Medicine
DX: S60.551A Superficial foreign body of right hand, initial encounter (principal)
CPT/HCPCS: 99024

== ENCOUNTER → 2025-08-15 09:50 | Outpatient (BNVA) | payer MEDICARE, MEDICAID, SELFPAY | PROVIDERS: PCP Internal Medicine | DX: S60.551A Superficial foreign body of right hand, initial encounter (principal); Z98.890 Other specified postprocedural states; Z87.891 Personal history of nicotine dependence | CPT/HCPCS: 99212 ==

== ENCOUNTER 2025-08-16 07:44 | Outpatient (REF) | payer MEDICARE, MEDICAID, SELFPAY ==
--- NOTE | ~2025-08-16 | CT_ITS ---
EXAMINATION: CT SHOULDER WITHOUT CONTRAST, RIGHT CLINICAL INFORMATION: M25.511 - Pain in right shoulder COMPARISON: X-ray on March 17, 2025 TECHNIQUE: Axial CT was performed through the right shoulder joint. No contrast. Coronal and sagittal reformatted images were generated from the original axial data set. ALARA: The examination used one or more of the following radiation dose reduction techniques: Automated exposure control, iterative reconstruction, and/or adjustment of mA and/or KV. FINDINGS: There is severe narrowing of the glenohumeral joint. There is a large medial osteophyte along the medial margin of the humeral head. There is sclerosis and degenerative cystic change within the glenoid. Glenoid is a retroverted 14 degrees. There is linear and punctate calcification along the articular surface of the superior humeral head likely representing chondrocalcinosis. There is no definite joint effusion. There is no gross full-thickness retracted rotator cuff tear. Long biceps tendon is not well demonstrated, probably grossly intact. Mild degenerative irregularity is noted in the AC joint. There is faint calcium in the superior acromioclavicular ligament, probably chondrocalcinosis. There are ground glass and coarse interstitial markings in the visible portions of the right lung. 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 Glenoid retroversion: 14 degrees. Coarse markings in the right lung could be related to chronic interstitial disease or acute pneumonitis or less likely interstitial edema. Electronically signed by: Eagle Hoffman MD 08/18/2025 05:42 PM EST
== END 2025-08-16 07:45 | disposition home or self-care (01) ==
LOC: HO.CT 07:44
PROVIDERS: PCP Internal Medicine; Visit Provider Orthopaedic Surgery
DX: M25.511 Pain in right shoulder (principal)
CPT/HCPCS: 73200

== ENCOUNTER → 2025-08-16 07:46 | Outpatient (BNV) | payer MEDICARE, MEDICAID, SELFPAY | PROVIDERS: PCP Internal Medicine; Visit Provider Radiology Diagnostic Radiology | DX: M19.011 Primary osteoarthritis, right shoulder (principal) | CPT/HCPCS: 73200 ==

== ENCOUNTER 2025-09-13 09:17 | Outpatient (AMB) | payer MEDICARE, MEDICAID, SELFPAY ==
--- NOTE | 2025-09-13 09:21 | MHC.OFFVIS ---
Vital Signs 09/13/25 09:26 Height 5 ft 4 in Weight 201 lb BMI 34.5 Intake Visit Reasons: OV- CT scan review/ RT shoulder Intake Note: Cholo is a 74 year old male who presents with complaints of progressively worsening right shoulder pain and weakness. The patient states that he injured his shoulder 6-7 years ago while lifting a heavy object. He has had cortisone injections in the past. He states that the last injection gave him no relief. He has failed the last 6 weeks of conservative treatment which has included Tylenol, anti-inflammatory medicines, a home exercise program and physical therapy exercises. He reports weakness when lifting his right hand above shoulder height. Payroll And Benefits Coordinator Services: Payroll And Benefits Coordinator Offered & Declined (Patients daughter will interpret) Allergies No Known Allergies Allergy (Verified 08/15/25 10:08) Medication List - Last Reconciled 09/13/25 by Rafa Dawson MD atorvastatin 20 mg PO DAILY clopidogrel 75 mg PO DAILY docusate sodium (Colace) 100 mg PO BID ezetimibe 10 mg PO DAILY furosemide 20 mg PO DAILY insulin lispro (Humalog U-100 Insulin) subcut insulin syringe-needle U-100 As directed ipratropium-albuterol 0.5 mg-3 mg(2.5 mg base)/3 mL 3 mL inhalation BID 30 days linagliptin-metformin 2.5-500 mg (Jentadueto) 2.5 tabs PO BID metoprolol tartrate 50 mg PO BID PRN nitroglycerin 1 mg sublingual USEASDIRECTD PRN MDD 3 sennosides (senna) 8.6 mg PO BEDTIME PRN spironolactone 25 mg PO DAILY PFSH Medical History (Updated 08/14/25 @ 14:59 by Michael Gage NP) Chronic restrictive lung disease CHF (congestive heart failure) GER (obstructive sleep apnea) Chronic hypoxemic respiratory failure 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 2 diabetes mellitus associated with morbid obesity Hyperlipidemia Osteoarthritis Essential hypertension Oxygen dependent COPD (chronic obstructive pulmonary disease) Surgical History (Updated 08/14/25 @ 15:20 by Michael Gage NP) H/O aortic valve replacement Family History (Updated 08/14/25 @ 13:05 by Gianluca Guardado CNA) Brother Cardiac disease Father Cardiac disease Mother Cardiac disease Heart problem Social History (Updated 08/14/25 @ 13:05 by GILMA Cano Alcohol intake: former Patient Tobacco Use Status: Former Tobacco user Current occupational status: retired 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 Physical Exam Vital Signs: BMI result Body Mass Index 34.5 Extrem Other: Right shoulder examination shows decreased range of motion when compared to his left shoulder, pain with range of motion, crepitus with range of motion, no instability Results Reviewed Results Reviewed: CT scan of the patient's right shoulder shows end-stage glenohumeral joint arthritis with grade 4 [id number] arthritis, subchondral sclerosis, osteophyte formation, no acute bony abnormalities Assessment & Plan Assessment & Plan (1) Right shoulder pain: Code(s): M25.511 - Pain in right shoulder Category: Medical Plan Mr. Chon Guardado presents with progressively worsening right shoulder pain and stiffness due to end-stage glenohumeral joint arthritis. I had a lengthy discussion with the patient regarding the treatment options. The most recent cortisone injections gave him no relief. The patient may be a candidate for reverse right total shoulder replacement surgery. Thus, I will have him evaluated by my partner, Dr. Soto, for further information regarding his surgical treatment options. The patient will continue with his range of motion exercises in the meantime. Feel free to call me at any time should questions regarding his orthopedic management arise. I spent 22 minutes in reviewing the patient's records and imaging studies, seeing the patient and documenting in the medical record. Coding Level of Care Code Est Pt Level 3 (41914) Add On Problem Visit Only Diagnoses Right shoulder pain M25.511
[2025-09-13 09:26] VITALS: BMI 34.5
== END 2025-09-13 09:47 | disposition home or self-care (01) ==
LOC: HO.HOS 09:17
PROVIDERS: PCP Internal Medicine; Visit Provider Orthopaedic Surgery
DX: M25.511 Pain in right shoulder (principal)
CPT/HCPCS: 99213; G2211

== ENCOUNTER → 2025-09-13 09:17 | Outpatient (BNVA) | payer MEDICARE, MEDICAID, SELFPAY | PROVIDERS: PCP Internal Medicine; Visit Provider Orthopaedic Surgery | DX: M25.511 Pain in right shoulder (principal) | CPT/HCPCS: 99212 ==